=== PATIENT | female | born 1940 | race African-American/Black ===

== ENCOUNTER 2017-11-28 14:18 | Emergency (ER) | payer MEDICARE, BC ==
[2017-11-28 15:04] LABS: ADD MAN DIFF? NO
[2017-11-28 15:06] LABS: BASO % 0 % (0-3); EOS # 0.1 x10^3/uL (0.0-0.7); EOS % 2 % (0-3); HEMATOCRIT 37.7 % (36.0-47.0); HEMOGLOBIN 12.1 g/dL (12.0-15.5); LYMPH # 3.2 x10^3/uL (1.0-4.8); LYMPH % 50 % (24-48); MEAN CORPUSCULAR HEMOGLOBIN 27 pg (25-35); MEAN CORPUSCULAR HGB CONC 32 g/dL (31-37); MEAN CORPUSCULAR VOLUME 85 fL (79-100); MONO # 0.5 x10^3/uL (0.0-1.1); MONO % 8 % (0-9); NEUT # 2.5 x10^3uL (1.8-7.7); NEUT % 40 % (31-73); PLATELET COUNT 242 x10^3/uL (140-400); RED BLOOD COUNT 4.46 x10^6/uL (3.50-5.40); RED CELL DISTRIBUTION WIDTH 15.7 % (11.5-14.5); WHITE BLOOD COUNT 6.4 x10^3/uL (4.0-11.0)
[2017-11-28 15:11] LABS: BILIRUBIN,URINE NEGATIVE (NEG); CLARITY,URINE CLEAR; GLUCOSE,URINE NEGATIVE (NEG); NITRITE,URINE NEGATIVE (NEG); PROTEIN,URINE NEGATIVE (NEG-TRACE); UROBILINOGEN,URINE 0.2 mg/dL (0.2 mg/dL)
[2017-11-28 15:19] LABS: ANION GAP 8 (6-14); BLOOD UREA NITROGEN 11 mg/dL (7-20); CARBON DIOXIDE 29 mmol/L (21-32); CHLORIDE 104 mmol/L (98-107); CREATININE 0.9 mg/dL (0.6-1.0); GFR 73.9; GLUCOSE 97 mg/dL (70-99); POTASSIUM 3.7 mmol/L (3.5-5.1); SODIUM 141 mmol/L (136-145)
[2017-11-28 15:20] LABS: COLOR,URINE STRAW
[2017-11-28 15:22] LABS: BACTERIA,URINE MODERATE /HPF (0-FEW); RBC,URINE 0 /HPF (0-2); SQUAMOUS EPITHELIAL CELL,UR MOD /LPF; WBC,URINE OCC /HPF (0-4)
[2017-11-28 15:25] LABS: ALBUMIN 3.5 g/dL (3.4-5.0); ALK PHOS 122 U/L (46-116); ALT (SGPT) 19 U/L (14-59); AST (SGOT) 15 U/L (15-37); DIRECT BILIRUBIN < 0.1 mg/dL (0.0-0.2); LIPASE 124 U/L (73-393); TOTAL BILIRUBIN 0.3 mg/dL (0.2-1.0); TOTAL PROTEIN 8.2 g/dL (6.4-8.2)
[2017-11-28 15:27] LABS: TROPONINI < 0.017 ng/mL (0.000-0.055)
[2017-11-28] MEDS: MECLIZINE HCL 12.5 MG TABLET. PO (15:30)
[2017-11-28] MEDS: IV NORMAL SALINE 500ML BAG 500 ML IV (15:30)
== END 2017-11-28 18:32 | disposition home or self-care (01) ==
LOC: ER 14:18
DX: R53.1 Weakness (principal); R53.83 Other fatigue; R53.81 Other malaise; R42 Dizziness and giddiness; F41.9 Anxiety disorder, unspecified; M19.90 Unspecified osteoarthritis, unspecified site; M79.7 Fibromyalgia; I10 Essential (primary) hypertension; Z86.73 Personal history of transient ischemic attack (TIA), and cerebral infarction without residual deficits; Z88.0 Allergy status to penicillin; Z90.710 Acquired absence of both cervix and uterus; Z91.041 Radiographic dye allergy status
CPT/HCPCS: 36415; 70450; 71045; 80048; 80076; 81001; 83690; 84484; 85025; 87086; 93005; 96360; 99285-25; J7040; J8597

== ENCOUNTER 2018-01-10 10:05 | Emergency (ER) | payer MEDICARE, BC ==
[2018-01-10 10:31] LABS: ADD MAN DIFF? NO
[2018-01-10] MEDS: IPRATRPIUM/ALBUTEROL 0.5/2.5MG 3 ML NEBU. NEB (10:40)
[2018-01-10 10:42] LABS: ANION GAP 6 (6-14); BASO % 0 % (0-3); BLOOD UREA NITROGEN 12 mg/dL (7-20); BUN/CREATININE RATIO 12 (6-20); CALCIUM 8.7 mg/dL (8.5-10.1); CARBON DIOXIDE 28 mmol/L (21-32); CHLORIDE 102 mmol/L (98-107); EOS # 0.1 x10^3/uL (0.0-0.7); EOS % 3 % (0-3); GFR 65.4; GLUCOSE 98 mg/dL (70-99); HEMATOCRIT 35.8 % (36.0-47.0); LYMPH # 2.7 x10^3/uL (1.0-4.8); LYMPH % 49 % (24-48); MEAN CORPUSCULAR HEMOGLOBIN 28 pg (25-35); MEAN CORPUSCULAR HGB CONC 34 g/dL (31-37); MEAN CORPUSCULAR VOLUME 84 fL (79-100); MONO # 0.4 x10^3/uL (0.0-1.1); MONO % 7 % (0-9); NEUT # 2.2 x10^3uL (1.8-7.7); NEUT % 41 % (31-73); PLATELET COUNT 250 x10^3/uL (140-400); POTASSIUM 3.8 mmol/L (3.5-5.1); RED BLOOD COUNT 4.26 x10^6/uL (3.50-5.40); SODIUM 136 mmol/L (136-145); WHITE BLOOD COUNT 5.4 x10^3/uL (4.0-11.0)
[2018-01-10 10:47] LABS: ALBUMIN 3.3 g/dL (3.4-5.0); ALBUMIN/GLOBULIN RATIO 0.7 (1.0-1.7); ALK PHOS 112 U/L (46-116); ALT (SGPT) 25 U/L (14-59); AST (SGOT) 16 U/L (15-37); TOTAL BILIRUBIN 0.4 mg/dL (0.2-1.0); TOTAL PROTEIN 8.1 g/dL (6.4-8.2)
[2018-01-10] MEDS: predniSONE 10 MG TABLET PO (10:58)
[2018-01-10 12:19] LABS: BILIRUBIN,URINE NEGATIVE (NEG); CLARITY,URINE CLEAR; COLOR,URINE YELLOW; GLUCOSE,URINE NEGATIVE (NEG); NITRITE,URINE NEGATIVE (NEG); PROTEIN,URINE NEGATIVE (NEG-TRACE); UROBILINOGEN,URINE 0.2 mg/dL (0.2 mg/dL)
[2018-01-10 12:31] LABS: BACTERIA,URINE 0 /HPF (0-FEW); RBC,URINE 0 /HPF (0-2); SQUAMOUS EPITHELIAL CELL,UR FEW /LPF; WBC,URINE 0 /HPF (0-4)
== END 2018-01-10 13:11 | disposition home or self-care (01) ==
LOC: ER 10:05
DX: R05 Cough (principal); R06.02 Shortness of breath; R06.2 Wheezing; I10 Essential (primary) hypertension; M79.7 Fibromyalgia; Z86.73 Personal history of transient ischemic attack (TIA), and cerebral infarction without residual deficits; Z88.0 Allergy status to penicillin; Z91.041 Radiographic dye allergy status
CPT/HCPCS: 36415; 71045; 80053; 81001; 85025; 93005; 94640; 99285; J7512; J7620

== ENCOUNTER → 2018-01-26 | Day surgery (SDC) | payer MEDICARE, BC ==
[~2018-01-26] MED LIST: IV RINGERS,LACTATED 1000ML 1,000 ML IV; LIDOCAINE 1% PF 2 ML VIAL. ID; LIDOCAINE 2% PF Vial for OR 5 ML VIAL.; MORPHINE SULFATE 4 MG/ML DISP.SYRIN. IV; ONDANSETRON PF 4 MG/2 ML VIAL. IV; PROCHLORPERAZINE 10 MG/2 ML VIAL. IV; PROPOFOL 40 ML IV; fentaNYL PF VIAL 100 MCG/2 ML VIAL IV
[2018-01-26] MEDS: IV RINGERS,LACTATED 1000ML 1,000 ML IV (08:25)
== END | disposition home or self-care (01) ==
LOC: ENDOS 07:45
DX: Z09 Encounter for follow-up examination after completed treatment for conditions other than malignant neoplasm (principal); Z86.010 Personal history of colon polyps; K57.30 Diverticulosis of large intestine without perforation or abscess without bleeding; F41.9 Anxiety disorder, unspecified; F32.9 Major depressive disorder, single episode, unspecified; K21.9 Gastro-esophageal reflux disease without esophagitis; M17.0 Bilateral primary osteoarthritis of knee; E66.01 Morbid (severe) obesity due to excess calories; G47.33 Obstructive sleep apnea (adult) (pediatric); J45.20 Mild intermittent asthma, uncomplicated; I12.9 Hypertensive chronic kidney disease with stage 1 through stage 4 chronic kidney disease, or unspecified chronic kidney disease; F41.1 Generalized anxiety disorder; N18.2 Chronic kidney disease, stage 2 (mild); Z98.890 Other specified postprocedural states; Z86.73 Personal history of transient ischemic attack (TIA), and cerebral infarction without residual deficits; Z90.710 Acquired absence of both cervix and uterus; Z98.51 Tubal ligation status; Z98.42 Cataract extraction status, left eye; Z98.41 Cataract extraction status, right eye; Z96.1 Presence of intraocular lens; Z88.0 Allergy status to penicillin; Z91.041 Radiographic dye allergy status; Z79.82 Long term (current) use of aspirin; Z79.84 Long term (current) use of oral hypoglycemic drugs; Z79.899 Other long term (current) drug therapy; Z87.440 Personal history of urinary (tract) infections
CPT/HCPCS: 45378; G0105; J2704

== ENCOUNTER 2019-01-05 13:05 | Emergency (ER) | payer MEDICARE, BC ==
[~2019-01-05] VITALS: Ht 162.6 cm; Wt 148.3 kg
[~2019-01-05 13:05] MED LIST changes: +ALBU2.5V8 IH; +ALPR0.5T10 PO; +ASPI325T70 PO; +CETI-17 PO; +CHOL100013 PO; +DICL100G18 TP; +FLEXERIL PO; +FLUT12HF2 IH; +FLUT16SP2 NS; +FURO40TA4 PO; +GABA300C18 PO; +GUAI600T47 PO; +HYDR-2769 PO; -IV RINGERS,LACTATED 1000ML 1,000 ML IV; -LIDOCAINE 1% PF 2 ML VIAL. ID; -LIDOCAINE 2% PF Vial for OR 5 ML VIAL.; +LISI-338 PO; +METF500T16 PO; +METF500T9 PO; +MOME0.5P MC; -MORPHINE SULFATE 4 MG/ML DISP.SYRIN. IV; +OMEG1CAP38 PO; -ONDANSETRON PF 4 MG/2 ML VIAL. IV; +PANT40TA3 PO; +PANT40TA5 PO; +POTA20TA4 PO; +PRED50TA PO; -PROCHLORPERAZINE 10 MG/2 ML VIAL. IV; -PROPOFOL 40 ML IV; +RABE20TA18 PO; +SIMV10TA3 PO; +VENL75CA PO; +XOPENEX CO1.25 MG/0. IH; -fentaNYL PF VIAL 100 MCG/2 ML VIAL IV
[2019-01-05] MEDS ORDERED: MORPHINE IR 15 MG TABLET PO STA (14:30)
--- NOTE | 2019-01-05 15:30 | RAD ---
Right lower extremity venous Doppler dated 01/05/2019. No comparison available. Clinical data indication: Swelling and pain. FINDINGS: Grayscale, color-flow and spectral waveform analysis performed to include the deep venous system of the right lower extremity. There is normal compressibility, phasicity and augmentation of flow throughout. No filling defects are seen. IMPRESSION: No evidence of right lower extremity deep vein thrombosis. Electronically signed by: Taiwo Langley MD (01/05/2019 3:27 PM) [id number]
--- NOTE | 2019-01-05 15:45 | PHYS DOC ---
Past Medical History Past Medical History: Anxiety, Arthritis, CVA, Fibromyalgia, Hypertension, UTI, Other Additional Past Medical Histor: hypokalemia Past Surgical History: Hysterectomy, Other Additional Past Surgical Histo: breast lumpectomy. Alcohol Use: None Drug Use: None Adult General Chief Complaint Chief Complaint: LOWER EXT PAIN HPI HPI Patient is a 78 year old F who presents for R leg swelling and pain x 6 month. She has been having her knee treated for arthritis. She had an injection there 1 month ago which helped. She has been able to walk on it. She did not fall on it. She does say she fell out of bed 1 week ago but she did not hurt her leg at that time. She denies fevers/chills, recent travel, taking hormones/estrogens, cp, sob, vomiting. Review of Systems Review of Systems Constitutional: Denies fever or chills Eyes: Denies change in visual acuity, redness, or eye pain HENT: Denies nasal congestion or sore throat Respiratory: Denies cough or shortness of breath Cardiovascular: Denies CP GI: Denies abdominal pain, nausea, vomiting, bloody stools or diarrhea : Denies dysuria or hematuria Musculoskeletal: Denies back pain or joint pain Integument: Denies rash or skin lesions Neurologic: Denies headache, focal weakness or sensory changes All other systems were reviewed and found to be within normal limits, except as documented in this note. Current Medications Current Medications Current Medications Medications (Trade) Dose Ordered Sig/Marta Start Time Stop Time Status Last Admin Dose Admin Morphine Sulfate (Morphine Ir) 15 mg 1X STAT 01/05/19 14:30 01/05/19 14:33 DC 01/05/19 14:59 15 MG Allergies Allergies Allergies Coded Allergies Type Severity Reaction Last Updated Verified Iodinated Contrast- Oral and IV Dye Allergy Intermediate 10/08/15 Yes Penicillins Allergy Intermediate 10/08/15 Yes Physical Exam Physical Exam Constitutional: Well developed, well nourished, no acute distress, non-toxic appearance. HENT: Normocephalic, atraumatic, bilateral external ears normal, oropharynx moist, no oral exudates, nose normal. Eyes: EOMI, conjunctiva normal, no discharge. Neck: Normal range of motion, no tenderness, supple, no stridor. Cardiovascular: Heart rate regular rhythm, no murmur Lungs & Thorax: Bilateral breath sounds clear to auscultation Abdomen: Bowel sounds normal, soft, no tenderness, no masses, no pulsatile masses. Skin: Warm, dry, no erythema, no rash. Back: No tenderness, no CVA tenderness. Extremities: No tenderness, no cyanosis, no clubbing, ROM intact. Bilat legs with trace edema, 2+ DP pulses bilat. Pt ambulates on the legs without difficulty. No long bone tenderness/deformity or signs of trauma. ROM of feet/ankels/kness intact. Neurologic: Alert and oriented X 3, normal motor function, normal sensory function, no focal deficits noted. Psychologic: Affect normal, judgement normal, mood normal. Current Patient Data Vital Signs Vital Signs Date Time Temp Pulse Resp B/P (MAP) Pulse Ox O2 Delivery O2 Flow Rate FiO2 01/05/19 16:00 70 16 140/77 (98) 100 01/05/19 14:00 97.9 Room Air 97.9 EKG EKG [] Radiology/Procedures Radiology/Procedures [] Course & Med Decision Making Course & Med Decision Making Pertinent Labs and Imaging studies reviewed. (See chart for details) 78 y/o F presents for RLE swelling, both legs swollen for 6 months. On exam she really does not have impressive swelling, maybe trace pitting edema bilat. She does not have any effusion of her knee either to suggest gout or septic arthritis. There is no erythema/induration/bullae to suggest celluitis or necrotizing fasciitis. DVT study neg. She has no respiratory distress, hypoxia, sob, or anything else to suggest heart failure exacerbation. I suspect that this is dependent trace edema and her apin is coming from arthritis in her knee. Pt given one dose of oral pain meds and feels better. She is agreeable with DC home and follow up with PMD. Discussed return precautions. Dragon Disclaimer Dragon Disclaimer This electronic medical record was generated, in whole or in part, using a voice recognition dictation system. Departure Departure Impression: Primary Impression: Leg swelling Disposition: HOME, SELF-CARE Condition: GOOD Referrals: AMADOU TOLLIVER MD (PCP) SEFERINO BERMAN MD January 05, 2019 15:45
[2019-01-05 16:00] VITALS: BP 140/77
== END 2019-01-05 16:22 | disposition home or self-care (01) ==
LOC: ER 13:05
DX: R22.41 Localized swelling, mass and lump, right lower limb (principal); M79.604 Pain in right leg; I10 Essential (primary) hypertension; Z86.73 Personal history of transient ischemic attack (TIA), and cerebral infarction without residual deficits; M17.10 Unilateral primary osteoarthritis, unspecified knee; Z90.710 Acquired absence of both cervix and uterus; Z91.041 Radiographic dye allergy status; Z88.0 Allergy status to penicillin
CPT/HCPCS: 93971; 99284-25

== ENCOUNTER 2020-09-17 05:52 | Inpatient (IN) | payer MEDICARE, BC ==
[~2020-09-17] VITALS: Ht 160 cm; Wt 143.8 kg
[~2020-09-17 05:52] MED LIST changes: -DICL100G18 TP; +DICL100G54 TP; -LISI-338 PO; +LISI-517 PO; +METF-658 PO; -METF500T9 PO; -PANT40TA3 PO; -PANT40TA5 PO; +PANT40TA77 PO; +SIMV10TA15 PO; -SIMV10TA3 PO
--- NOTE | 2020-09-17 06:08 | PHYS DOC ---
Past Medical History Past Medical History: Anxiety, Arthritis, CVA, Fibromyalgia, Hypertension, UTI, Other Additional Past Medical Histor: hypokalemia Past Surgical History: Hysterectomy, Other Additional Past Surgical Histo: breast lumpectomy. Smoking Status: Never Smoker Alcohol Use: None Drug Use: None General Adult EDM: Chief Complaint: SHORTNESS OF BREATH HPI: HPI: Patient is a 80 year old female who presented to ER for evaluation of trouble breathing and left-sided chest pain that woke her up this morning about 3 AM.. Patient denies any fever., Patient denies any cough. Patient has had trouble breathing for the last 4 days but become worse this morning. Patient said her daughter was diagnosed with COVID-19 infection on August 07, she was then tested herself and it came back negative. Review of Systems: Review of Systems: Constitutional: Denies fever or chills. [] Eyes: Denies change in visual acuity. [] HENT: Denies nasal congestion or sore throat. [] Respiratory: Denies cough , POSITIVE FOR shortness of breath. [] Cardiovascular: Positive for chest pain, no edema. [] GI: Denies abdominal pain, nausea, vomiting, bloody stools or diarrhea. [] : Denies dysuria. [] Musculoskeletal: Denies back pain or joint pain. [] Integument: Denies rash. [] Neurologic: Denies headache, focal weakness or sensory changes. [] Endocrine: Denies polyuria or polydipsia. [] Lymphatic: Denies swollen glands. [] Psychiatric: Denies depression or anxiety. [] Heart Score: HEART Score for Chest Pain: HEART Score for Chest Pain Response (Comments) Value History Moderately Suspicious 1 ECG Nonspecific Repolarizatio 1 Age > 65 2 Troponin < Normal Limit 0 Total 4 Risk Factors: Risk Factors: DM, Current or recent (<one month) smoker, HTN, HLP, family history of CAD, obesity. Risk Scores: Score 0 - 3: 2.5% MACE over next 6 weeks - Discharge Home Score 4 - 6: 20.3% MACE over next 6 weeks - Admit for Clinical Observation Score 7 - 10: 72.7% MACE over next 6 weeks - Early Invasive Strategies Allergies: Allergies: Allergies Coded Allergies Type Severity Reaction Last Updated Verified Iodinated Contrast Media Allergy Intermediate 10/08/15 Yes Penicillins Allergy Intermediate 10/08/15 Yes Physical Exam: PE: Constitutional: Well developed, well nourished, no acute distress, non-toxic appearance. [] HENT: Normocephalic, atraumatic, bilateral external ears normal, oropharynx moist, no oral exudates, nose normal. [] Eyes: PERRLA, EOMI, conjunctiva normal, no discharge. [] Neck: Normal range of motion, no tenderness, supple, no stridor. [] Cardiovascular:Heart rate regular rhythm, no murmur [] Lungs & Thorax: Bilateral breath sounds clear to auscultation [] Abdomen: Bowel sounds normal, soft, no tenderness, no masses, no pulsatile masses. [] Skin: Warm, dry, no erythema, no rash. [] Back: No tenderness, no CVA tenderness. [] Extremities: No tenderness, no cyanosis, no clubbing, ROM intact, no edema. [] Neurologic: Alert and oriented X 3, normal motor function, normal sensory function, no focal deficits noted. [] Psychologic: Affect normal, judgement normal, mood normal. [] Current Patient Data: Labs: Laboratory Tests Test 09/17/20 06:00 09/17/20 06:09 White Blood Count 4.4 x10^3/uL Red Blood Count 4.36 x10^6/uL Hemoglobin 12.2 g/dL Hematocrit 37.3 % Mean Corpuscular Volume 86 fL Mean Corpuscular Hemoglobin 28 pg Mean Corpuscular Hemoglobin Concent 33 g/dL Red Cell Distribution Width 14.9 % Platelet Count 224 x10^3/uL Neutrophils (%) (Auto) 38 % Lymphocytes (%) (Auto) 47 % Monocytes (%) (Auto) 10 % Eosinophils (%) (Auto) 4 % Basophils (%) (Auto) 1 % Neutrophils # (Auto) 1.7 x10^3/uL Lymphocytes # (Auto) 2.1 x10^3/uL Monocytes # (Auto) 0.4 x10^3/uL Eosinophils # (Auto) 0.2 x10^3/uL Basophils # (Auto) 0.0 x10^3/uL Sodium Level 142 mmol/L Potassium Level 3.7 mmol/L Chloride Level 106 mmol/L Carbon Dioxide Level 27 mmol/L Anion Gap 9 Blood Urea Nitrogen 9 mg/dL Creatinine 0.9 mg/dL Estimated GFR (Cockcroft-Gault) 73.3 BUN/Creatinine Ratio 10 Glucose Level 109 mg/dL Calcium Level 9.2 mg/dL Magnesium Level 2.1 mg/dL Total Bilirubin 0.5 mg/dL Aspartate Amino Transf (AST/SGOT) 11 U/L Alanine Aminotransferase (ALT/SGPT) 16 U/L Alkaline Phosphatase 111 U/L Troponin I Quantitative < 0.017 ng/mL VI-Bpx-Z-Type Natriuretic Peptide 86 pg/mL Total Protein 7.5 g/dL Albumin 3.5 g/dL Albumin/Globulin Ratio 0.9 Lipase 66 U/L Urine Collection Type Void Urine Color Yellow Urine Clarity Clear Urine pH 6.5 Urine Specific [place] <=1.005 Urine Protein Negative mg/dL Urine Glucose (UA) Negative mg/dL Urine Ketones (Stick) Negative mg/dL Urine Blood Negative Urine Nitrite Negative Urine Bilirubin Negative Urine Urobilinogen Dipstick 0.2 mg/dL Urine Leukocyte Esterase Negative Urine RBC 0 /HPF Urine WBC 0 /HPF Urine Squamous Epithelial Cells Mod /LPF Urine Bacteria Few /HPF Current Medications Medications (Trade) Dose Ordered Sig/Marta Route PRN Reason Start Time Stop Time Status Last Admin Dose Admin Nitroglycerin (Nitro-Bid Oint) 1 inch 1X ONCE TP 09/17/20 06:45 09/17/20 06:46 DC 09/17/20 06:49 Aspirin (Aspirin Chewable) 324 mg 1X ONCE PO 09/17/20 07:30 09/17/20 07:31 DC Morphine Sulfate (Morphine Sulfate) 4 mg 1X ONCE IV 09/17/20 07:45 09/17/20 07:46 DC EKG: EKG: EKG was done at 601, heart rate of 86 bpm, sinus rhythm, no ST segment elevation. Radiology/Procedures: Radiology/Procedures: [][facility] [address] [place] [address] IMAGING REPORT Signed PATIENT: BETO JOSEPH: [id number] : 1940 LOCATION: ER AGE: 80 SEX: F EXAM STATUS: REG ER ORD. PHYSICIAN: VLADISLAV SEBASTIAN DO REASON: chest pain, soa PROCEDURE: PORTABLE CHEST 1V XR CHEST 1V Clinical Indication: Reason: chest pain, soa / Spl. Instructions: / History: Comparison: AP chest, July 06, 2019. Findings: The cardiomediastinal silhouette is normal. Lungs are clear. There is no pneumothorax. No pleural effusion is appreciated. No acute bone abnormality. There is arthropathy of the shoulders. IMPRESSION: No acute cardiopulmonary process. Electronically signed by: Enrique Bey MD (09/17/2020 6:32 AM) [facility] DICTATED and SIGNED BY: ENRIQUE BEY MD DATE: 09/17/20 [id number] 0 Course & Med Decision Making: Course & Med Decision Making Pertinent Labs and Imaging studies reviewed. (See chart for details) Patient is a 80-year-old female who presented to ER for evaluation of chest pain and trouble breathing, her cardiac enzyme and lab work came back normal so far. Her blood pressure elevated, patient be admitted to hospital for further evaluation and treatment. Patient daughter was infected with COVID-19 last month, patient was tested negative then, however with her symptoms we will retested her for Covid infection as well. Dragon Disclaimer: Dragon Disclaimer: This electronic medical record was generated, in whole or in part, using a voice recognition dictation system. Departure Departure Impression: Primary Impression: Chest pain Additional Impressions: Hypertension Person under investigation for COVID-19 Disposition: ADMITTED INPT THIS HOSP Admitting Physician: Thompson Levy Patel, Pratip Condition: IMPROVED Referrals: AMADOU TOLLIVER MD (PCP) VLADISLAV SEBASTIAN DO Sep 17, 2020 06:08
[2020-09-17 06:30] LABS: CALCIUM 9.2 mg/dL (8.5-10.1); CREATININE 0.9 mg/dL (0.6-1.0); GFR 73.3; POTASSIUM 3.7 mmol/L (3.5-5.1)
[2020-09-17 06:32] LABS: BASO % 1 % (0-3); EOS # 0.2 x10^3/uL (0.0-0.7); EOS % 4 % (0-3); HEMATOCRIT 37.3 % (36.0-47.0); HEMOGLOBIN 12.2 g/dL (12.0-15.5); LYMPH # 2.1 x10^3/uL (1.0-4.8); LYMPH % 47 % (24-48); MEAN CORPUSCULAR HEMOGLOBIN 28 pg (25-35); MEAN CORPUSCULAR HGB CONC 33 g/dL (31-37); MEAN CORPUSCULAR VOLUME 86 fL (79-100); MONO # 0.4 x10^3/uL (0.0-1.1); MONO % 10 % (0-9); NEUT # 1.7 x10^3/uL (1.8-7.7); NEUT % 38 % (31-73); PLATELET COUNT 224 x10^3/uL (140-400); RED BLOOD COUNT 4.36 x10^6/uL (3.50-5.40); RED CELL DISTRIBUTION WIDTH 14.9 % (11.5-14.5); WHITE BLOOD COUNT 4.4 x10^3/uL (4.0-11.0)
--- NOTE | 2020-09-17 06:34 | RAD ---
XR CHEST 1V Clinical Indication: Reason: chest pain, soa / Spl. Instructions: / History: Comparison: AP chest, July 06, 2019. Findings: The cardiomediastinal silhouette is normal. Lungs are clear. There is no pneumothorax. No pleural eff usion is appreciated. No acute bone abnormality. There is arthropathy of the shoulders. IMPRESSION: No acute cardiopulmonary process. Electronically signed by: Enrique Bey MD (09/17/2020 6:32 AM) [facility]
[2020-09-17 06:35] LABS: BILIRUBIN,URINE NEGATIVE (NEG); CLARITY,URINE CLEAR; COLOR,URINE YELLOW; NITRITE,URINE NEGATIVE (NEG); PH,URINE 6.5 (<5.0-8.0); PROTEIN,URINE NEGATIVE (NEG-TRACE); UROBILINOGEN,URINE 0.2 mg/dL (0.2 mg/dL)
[2020-09-17 06:36] LABS: ALBUMIN 3.5 g/dL (3.4-5.0); ALBUMIN/GLOBULIN RATIO 0.9 (1.0-1.7); MAGNESIUM 2.1 mg/dL (1.8-2.4); TOTAL BILIRUBIN 0.5 mg/dL (0.2-1.0); TOTAL PROTEIN 7.5 g/dL (6.4-8.2)
[2020-09-17] MEDS ORDERED: NITROGLYCERIN OINT 1 GM PACKET. TP ONE (06:45)
[2020-09-17 06:46] LABS: BACTERIA,URINE FEW /HPF (0-FEW); RBC,URINE 0 /HPF (0-2); WBC,URINE 0 /HPF (0-4)
[2020-09-17] MEDS ORDERED: ASPIRIN CHEWABLE 81 MG TABLET. PO ONE (07:30)
--- NOTE | 2020-09-17 07:38 | EKG ---
[facility] [address] [place] [address] Test Date: 2020-09-17 Test Time: 06:01:22 Pat Name: TUSHAR JOSEPH Department: Room: Gender: F Train Clerk: : 1940 Requested By: VLADISLAV SEBASTIAN Order Number: [id number] Reading MD: Measurements Intervals [place] Rate: 86 P: 102 CT: 192 QRS: -37 QRSD: 112 T: 39 QT: 378 QTc: 455 Interpretive Statements SINUS ARRHYTHMIA ABNORMAL LEFT AXIS DEVIATION LEFT ANTERIOR FASCICULAR BLOCK LEFT VENTRICULAR HYPERTROPHY QRS(T) CONTOUR ABNORMALITY CONSIDER ANTEROSEPTAL MYOCARDIAL DAMAGE ABNORMAL ECG RI6.02 No previous ECG available for comparison
[2020-09-17] MEDS ORDERED: MORPHINE SULFATE 4 MG/ML VIAL. IV ONE (07:45)
[2020-09-17] MEDS ORDERED: MORPHINE SULFATE 4 MG/ML VIAL. IV PRN (08:00)
[2020-09-17] MEDS ORDERED: ONDANSETRON PF 4 MG/2 ML VIAL. IV PRN (08:00)
[2020-09-17] MEDS ORDERED: LISINOPRIL 10 MG TABLET PO ONE (08:00)
[2020-09-17] MEDS ORDERED: ACETAMINOPHEN 325 MG TABLET. PO PRN (10:15)
[2020-09-17] MEDS ORDERED: hydrALAZINE 20 MG/ML VIAL. IVP PRN ×2 (10:30→11:15)
--- NOTE | 2020-09-17 10:30 | PDOC ---
Provider Note Date of Service: DATE: 09/17/20 TIME: 10:29 Provider Note H&P dictated #[id number] Justifications for Admission Other Justification AMADOU TOLLIVER MD Sep 17, 2020 10:30
--- NOTE | 2020-09-17 10:53 | HP ---
ADMIT DATE: 09/17/2020 HISTORY OF PRESENT ILLNESS: This 80-year-old -[place] female who has multiple medical problems including morbid obesity, sleep apnea, hypertension and anxiety and chronic low back pain, started having chest pains 2 days ago. The patient's pain has been continuous at times. She denies any cold, cough, congestion, fever, chills, nausea, vomiting, diarrhea or heartburn. This morning at 3:00 a.m., she woke up with chest pains and because of that, she came to the Emergency Room. Because of the pain, the patient came to the Emergency Room, cardiac enzymes were negative. She was given nitroglycerin and it did give her some relief. The patient has been admitted for further evaluation and management. REVIEW OF SYSTEMS: As noted in the history of present illness. The patient continues to have low back pain that is chronic for her. Other systems reviewed and are negative. PAST MEDICAL HISTORY: The patient was last admitted here in 06/2019. At that time, she has had acute low back pain. She has a history of spinal stenosis and chronic lumbar radiculopathy. She also has had negative cardiac workup including a thallium scan in 2019 as well as echocardiogram showing ejection fraction of 77%. She has a history of hyperlipidemia, hypertension, DVT, palpitations, asthma, bronchitis, sleep apnea, CVA, constipation, diverticulosis, GERD, hemorrhoids, history of colitis, pancreatitis, colonic polyps, anemia, anxiety, depression, low back pain, osteoarthritis, fibromyalgia, diabetes with neuropathy. She has a history of old CVA with right lower extremity weakness. She has a history of fibromyalgia and obstructive sleep apnea. PAST SURGICAL HISTORY: Includes cataract removal, right breast lumpectomy, right knee arthroscopy, right rotator cuff repair. FAMILY HISTORY: Positive for coronary artery disease. SOCIAL HISTORY: No history of smoking, alcoholism or drug abuse. ALLERGIES: THE PATIENT IS ALLERGIC TO IODINATED CONTRAST AND PENICILLIN. MEDICATIONS: Reviewed and reconciled. PHYSICAL EXAMINATION: GENERAL: The patient is an elderly -[place] female who is alert, oriented x 3, morbidly obese, and not in any acute distress. She is somewhat anxious. VITAL SIGNS: Temperature 98.5, pulse 85 per minute, respirations 15 per minute, blood pressure was 181/126, went up to 207/100 mmHg. She does admit to some pain. EYES: Pupils reacting to light. Conjunctivae pale. Sclerae muddy. HEENT: Partial exam unremarkable. NECK: Supple. JVP normal. No thyromegaly. Trachea midline. LUNGS: Clear. CARDIOVASCULAR: S1, S2 regular. ABDOMEN: Soft, nontender, no guarding, no rigidity. Bowel sounds present. Abdomen is obese. EXTREMITIES: No edema. CENTRAL NERVOUS SYSTEM: Alert and oriented, anxious. Lumbosacral spine, mild pain with range of motion. LABORATORY FINDINGS: WBC count 4.4, hemoglobin 12.2, platelet count 224,000. Sodium 142, potassium 3.7. Troponin less than 0.017, BUN 9, creatinine 0.9, glucose 109, calcium 9.2, magnesium 2.1, AST 11, ALT 16, albumin 3.5, lipase 66. Urinalysis negative. Chest x-ray, no acute cardiopulmonary process. IMPRESSION: 1. Chest pain, etiology not clear. 2. Malignant hypertension. 3. Old cerebrovascular accident with left-sided weakness. 4. Fibromyalgia. 5. Osteoarthritis with chronic lumbar radiculopathy and low back pain on hydrocodone. 6. Gastroesophageal reflux disease without esophagitis. 7. Chronic pain. 8. Morbid obesity. 9. Depression. 10. Anxiety. 11. Asthma. 12. Obstructive sleep apnea. PLAN: Restart her home medications. Give IV hydralazine 10 mg q.4 hours p.r.n. for systolic blood pressure more than 160. Consult Dr. Mullins for cardiology evaluation and management. Monitor cardiac enzymes and EKG. Start Protonix and Lovenox for DVT prophylaxis. For details, please refer to the orders. AMADOU TOLLIVER MD DR: KAYLEE/lia JOB#: [id number] / [id number]
[2020-09-17 11:00] VITALS: BP 175/109
[2020-09-17] MEDS: FUROSEMIDE 40 MG TABLET. PO SCH (11:23)
[2020-09-17] MEDS: POTASSIUM CHLORIDE 20 MEQ TABLET.ER. PO SCH (11:23)
[2020-09-17] MEDS: PANTOPRAZOLE 40 MG TABLET.DR. PO SCH (11:24)
[2020-09-17] MEDS: LISINOPRIL 10 MG TABLET PO SCH (11:24)
[2020-09-17] MEDS: HYDROcodone/APAP 10/325 1 TAB TABLET PO PRN ×2 (11:35→20:42)
[2020-09-17] MEDS: ALBUTEROL SULFATE 2.5 MG/3 ML NEBU. NEB SCH ×3 (11:56→21:00)
[2020-09-17 12:33] LABS: CHOLESTEROL/HDL RATIO 3.1
--- NOTE | 2020-09-17 13:15 | PDOC2 ---
GAIL HAMMOND SMALL ENGINE TRAINER 09/17/20 1315: CARDIAC CONSULT DATE OF CONSULT Date of Consult DATE: 09/17/20 TIME: 13:09 REASON FOR CONSULT Reason for Consult: Chest pain REFERRING PHYSICIAN Referring Physician: Dr. Sweeney SOURCE Source: Chart review, Patient HISTORY OF PRESENT ILLNESS HISTORY OF PRESENT ILLNESS This is a 80 yo female who presented secondary to chest pain and shortness of breath. Patient reports having some mild shortness of breath for the last 4 days. Overnight, patient woke up from sleep with shortness of breath and tightness in her central chest. Denies any associated dizziness, diaphoresis, palpitations, or nausea/vomiting. PAST MEDICAL HISTORY Past Medical History Cardiovascular: HTN, Hyperlipidemia Pulmonary: No pertinent hx CENTRAL NERVOUS SYSTEM: CVA GI: GERD, Irritable bowel disease Heme/Onc: Anemia NOS Hepatobiliary: No pertinent hx Psych: Anxiety, Depression Musculoskeletal: Osteoarthritis Rheumatologic: Fibromyalgia Renal/: Chronic renal insuff (3) Endocrine: Diabetes (2) Dermatology: No pertinent hx PAST SURGICAL HISTORY Past Surgical History Breast Biopsy (x2 benign), Hysterectomy, Other (hemorrhoidectomy, nodule vocal cord removed: benign) FAMILY HISTORY Family History: Coronary Artery Disease, Heart Disease SOCIAL HISTORY Social History Smoke: No ALCOHOL: none Drugs: None Lives: with Family CURRENT MEDICATIONS CURRENT MEDICATIONS Current Medications Medications (Trade) Dose Ordered Sig/Marta Route PRN Reason Start Time Stop Time Status Last Admin Dose Admin Nitroglycerin (Nitro-Bid Oint) 1 inch 1X ONCE TP 09/17/20 06:45 09/17/20 06:46 DC 09/17/20 06:49 Aspirin (Aspirin Chewable) 324 mg 1X ONCE PO 09/17/20 07:30 09/17/20 07:31 DC 09/17/20 08:07 Morphine Sulfate (Morphine Sulfate) 4 mg 1X ONCE IV 09/17/20 07:45 09/17/20 07:46 DC 09/17/20 08:09 Lisinopril (Prinivil) 10 mg 1X ONCE PO 09/17/20 08:00 09/17/20 08:01 DC 09/17/20 08:08 Furosemide (Lasix) 40 mg DAILY PO 09/17/20 11:00 09/17/20 11:23 Acetaminophen/ Hydrocodone Bitart (Lortab 10/325) 1 tab PRN TID PRN PO MODERATE PAIN, SEVERE PAIN 09/17/20 10:15 09/17/20 11:35 Lisinopril (Prinivil) 10 mg DAILY PO 09/17/20 11:00 09/17/20 11:24 Potassium Chloride (Klor-Con) 20 meq DAILY PO 09/17/20 11:00 09/17/20 11:23 Enoxaparin Sodium (Lovenox 60mg Syringe) 60 mg Q12HR SQ 09/17/20 11:00 09/17/20 11:24 Pantoprazole Sodium (Protonix) 40 mg DAILYAC PO 09/17/20 11:30 09/17/20 11:24 ALLERGIES ALLERGIES: Coded Allergies: Iodinated Contrast Media (Verified Allergy, Intermediate, 10/08/15) Penicillins (Verified Allergy, Intermediate, 10/08/15) ROS Review of System 14 point ROS conducted with pertinent positives noted above in HPI PHYSICAL EXAM PHYSICAL EXAM General: Alert, Oriented X3, Cooperative, No acute distress HEENT: Atraumatic, Mucous membr. moist/pink Lungs: diminished bases Heart: Regular rate (SR no significant ectopies), Normal S1, Normal S2, No murmurs Abdomen: Soft, No tenderness Extremities: No cyanosis Skin: No breakdown, No significant lesion Neuro: Normal speech, Sensation intact Psych/Mental Status: Mental status NL, Mood NL MUSCULOSKELETAL: Osteoarthritic changes both hands VITALS/I&O VITALS/I&O: Vital Signs Date Time Temp Pulse Resp B/P (MAP) Pulse Ox O2 Delivery O2 Flow Rate FiO2 09/17/20 11:35 18 100 Room Air 09/17/20 11:24 89 175/109 09/17/20 11:00 97.5 97.5 LABS Lab: Laboratory Tests Test 09/17/20 06:00 09/17/20 06:09 09/17/20 09:54 09/17/20 11:54 White Blood Count 4.4 x10^3/uL (4.0-11.0) Red Blood Count 4.36 x10^6/uL (3.50-5.40) Hemoglobin 12.2 g/dL (12.0-15.5) Hematocrit 37.3 % (36.0-47.0) Mean Corpuscular Volume 86 fL (79-100) Mean Corpuscular Hemoglobin 28 pg (25-35) Mean Corpuscular Hemoglobin Concent 33 g/dL (31-37) Red Cell Distribution Width 14.9 % (11.5-14.5) H Platelet Count 224 x10^3/uL (140-400) Neutrophils (%) (Auto) 38 % (31-73) Lymphocytes (%) (Auto) 47 % (24-48) Monocytes (%) (Auto) 10 % (0-9) H Eosinophils (%) (Auto) 4 % (0-3) H Basophils (%) (Auto) 1 % (0-3) Neutrophils # (Auto) 1.7 x10^3/uL (1.8-7.7) L Lymphocytes # (Auto) 2.1 x10^3/uL (1.0-4.8) Monocytes # (Auto) 0.4 x10^3/uL (0.0-1.1) Eosinophils # (Auto) 0.2 x10^3/uL (0.0-0.7) Basophils # (Auto) 0.0 x10^3/uL (0.0-0.2) Sodium Level 142 mmol/L (136-145) Potassium Level 3.7 mmol/L (3.5-5.1) Chloride Level 106 mmol/L (98-107) Carbon Dioxide Level 27 mmol/L (21-32) Anion Gap 9 (6-14) Blood Urea Nitrogen 9 mg/dL (7-20) Creatinine 0.9 mg/dL (0.6-1.0) Estimated GFR (Cockcroft-Gault) 73.3 BUN/Creatinine Ratio 10 (6-20) Glucose Level 109 mg/dL (70-99) H Calcium Level 9.2 mg/dL (8.5-10.1) Magnesium Level 2.1 mg/dL (1.8-2.4) Total Bilirubin 0.5 mg/dL (0.2-1.0) Aspartate Amino Transferase (AST) 11 U/L (15-37) L Alanine Aminotransferase (ALT) 16 U/L (14-59) Alkaline Phosphatase 111 U/L (46-116) Troponin I Quantitative < 0.017 ng/mL (0.000-0.055) < 0.017 ng/mL (0.000-0.055) JL-Dgh-K-Type Natriuretic Peptide 86 pg/mL (0-449) Total Protein 7.5 g/dL (6.4-8.2) Albumin 3.5 g/dL (3.4-5.0) Albumin/Globulin Ratio 0.9 (1.0-1.7) L Triglycerides Level 120 mg/dL (0-150) Cholesterol Level 214 mg/dL (0-200) H LDL Cholesterol, Calculated 120 mg/dL (0-100) H VLDL Cholesterol, Calculated 24 mg/dL (0-40) Non-HDL Cholesterol Calculated 144 mg/dL (0-129) H HDL Cholesterol 70 mg/dL (40-60) H Cholesterol/HDL Ratio 3.1 Lipase 66 U/L (73-393) L Urine Collection Type Void Urine Color Yellow Urine Clarity Clear Urine pH 6.5 (<5.0-8.0) Urine Specific [place] <=1.005 (1.000-1.030) Urine Protein Negative mg/dL (NEG-TRACE) Urine Glucose (UA) Negative mg/dL (NEG) Urine Ketones (Stick) Negative mg/dL (NEG) Urine Blood Negative (NEG) Urine Nitrite Negative (NEG) Urine Bilirubin Negative (NEG) Urine Urobilinogen Dipstick 0.2 mg/dL (0.2 mg/dL) Urine Leukocyte Esterase Negative (NEG) Urine RBC 0 /HPF (0-2) Urine WBC 0 /HPF (0-4) Urine Squamous Epithelial Cells Mod /LPF Urine Bacteria Few /HPF (0-FEW) Glucose (Fingerstick) 96 mg/dL (70-99) Laboratory Tests 09/17/20 06:00 Laboratory Tests 09/17/20 06:00 ECHOCARDIOGRAM ECHOCARDIOGRAM <Conclusion> The left ventricular systolic function is normal. The Ejection Fraction is 55-60%. There is normal LV segmental wall motion. Trace to mild mitral regurgitation. Trace tricuspid regurgitation. The PA pressure was estimated at 32 mmHg. There is no evidence of significant pericardial effusion. DATE: 09/06/18 1216 STRESS TEST STRESS TEST Conclusion 1. Regadenoson cardioisotope stress test did not show any evidence of ischemia or infarct. 2. Normal left ventricular systolic function with ejection fraction calculated a t 77%. 3. Low risk for cardiac events. DATE: 05/01/17 1204 ASSESSMENT/PLAN ASSESSMENT/PLAN 1. Chest pain, mixed features; AMI ruled out. 2. Dyspnea; CXR clear. Nt Pro BNP 86. No evidence of overt HF. ? obstructive vs uncontrolled HTN component 2. Hypertensive urgency. remains labile 3. Hyperlipidemia: statin. [id number] 4. CKD 5. Hx of CVA 6. Morbid obesity: BMI 53.9 7. Diabetes, II 8. Anxiety/fibromyalgia 9. PUI; COVID pending Recommendations ASA Add statin, BB Home therapy resume. Monitor BP trends and titrate therapy as warranted Oral Lasix therapy. Echo to assess LV systolic function Will arranged outpatient ischemic evaluation and followup. CLINTON SANTIAGO MD 09/18/20 0844: CARDIAC CONSULT ASSESSMENT/PLAN ASSESSMENT/PLAN Patient seen and examined 09/17/20. Agree with BUSINESS SERVICES VICE PRESIDENT's assessment and plan. Chest pain with atypical features. Myocardial infarction has been ruled out. Resume home antihypertensives and titrate for better control. Check 2D echo to assess LV function and rule out wall motion abnormalities. Plan ischemic evaluation outpatient. Thank you for your consultation GAIL HAMMOND APRN Sep 17, 2020 13:15 CLINTON SANTIAGO MD Sep 18, 2020 08:44
[2020-09-17] MEDS: GABAPENTIN 300 MG CAPSULE. PO SCH ×2 (13:50→20:42)
[2020-09-17] MEDS: DICLOFENAC SODIUM 1% TOPICAL GEL 100GM TUBE. TP SCH ×2 (13:51→20:42)
[2020-09-17 15:00] VITALS: BP 129/73
[2020-09-17 19:29] VITALS: BP 121/51
[2020-09-17] MEDS: CETIRIZINE HCL 10 MG TABLET. PO SCH (20:42)
[2020-09-17] MEDS: BUDESONIDE 0.5 MG/2 ML NEBU. NEB SCH (21:00)
[2020-09-17] MEDS ORDERED: SALMETEROL IH SCH (21:00)
[2020-09-17] MEDS ORDERED: FLUTICASONE IH SCH (21:00)
[2020-09-17] MEDS: METOPROLOL TART IMMED RELEASE 25 MG TABLET. PO SCH (21:59)
[2020-09-17] MEDS: ATORVASTATIN CALCIUM 40 MG TABLET. PO SCH (21:59)
[2020-09-17 22:25] VITALS: BP 123/61
[2020-09-18 02:37] VITALS: BP 109/60
[2020-09-18 07:00] VITALS: BP 136/79
[2020-09-18] MEDS: GABAPENTIN 300 MG CAPSULE. PO SCH ×3 (07:55→20:23)
[2020-09-18] MEDS: OMEGA-3 FATTY ACIDS/FISH OIL 1,000 MG CAPSULE. PO SCH (07:55)
[2020-09-18] MEDS: LISINOPRIL 10 MG TABLET PO SCH (07:55)
[2020-09-18] MEDS: ASPIRIN 325 MG TABLET PO SCH (07:55)
[2020-09-18] MEDS: FUROSEMIDE 40 MG TABLET. PO SCH (07:55)
[2020-09-18] MEDS: POTASSIUM CHLORIDE 20 MEQ TABLET.ER. PO SCH (07:55)
[2020-09-18] MEDS: PANTOPRAZOLE 40 MG TABLET.DR. PO SCH (07:56)
[2020-09-18] MEDS: METOPROLOL TART IMMED RELEASE 25 MG TABLET. PO SCH ×2 (07:56→20:24)
[2020-09-18] MEDS: HYDROcodone/APAP 10/325 1 TAB TABLET PO PRN ×3 (07:57→20:24)
[2020-09-18] MEDS: ALBUTEROL SULFATE 2.5 MG/3 ML NEBU. NEB SCH ×4 (08:00→20:00)
[2020-09-18] MEDS: DICLOFENAC SODIUM 1% TOPICAL GEL 100GM TUBE. TP SCH ×3 (09:00→18:01)
[2020-09-18 09:15] LABS: CALCIUM 8.8 mg/dL (8.5-10.1); CREATININE 0.9 mg/dL (0.6-1.0); GFR 73.3; POTASSIUM 3.8 mmol/L (3.5-5.1)
--- NOTE | 2020-09-18 10:36 | PDOC3 ---
IM DISCHARGE SUMMARY Date of Admission Date of Admission Date of Admission: Sep 17, 2020 at 07:54 Date of Discharge Date of Discharge September 18, 2020 Primary Diagnosis Primary Diagnosis 1. Chest pain, etiology not clear. 2. Malignant hypertension. 3. Old cerebrovascular accident with left-sided weakness. 4. Fibromyalgia. 5. Osteoarthritis with chronic lumbar radiculopathy and low back pain on hydrocodone. 6. Gastroesophageal reflux disease without esophagitis. 7. Chronic pain. 8. Morbid obesity. 9. Depression. 10. Anxiety. 11. Asthma. 12. Obstructive sleep apnea. Consults Consults Wes Mullins MD Labs Labs Laboratory Tests Test 09/17/20 11:54 09/17/20 12:10 09/17/20 17:10 09/17/20 20:35 Glucose (Fingerstick) 96 mg/dL (70-99) 116 mg/dL (70-99) H 118 mg/dL (70-99) H Troponin I Quantitative < 0.017 ng/mL (0.000-0.055) Test 09/18/20 08:08 09/18/20 08:10 Glucose (Fingerstick) 96 mg/dL (70-99) Sodium Level 141 mmol/L (136-145) Potassium Level 3.8 mmol/L (3.5-5.1) Chloride Level 105 mmol/L (98-107) Carbon Dioxide Level 27 mmol/L (21-32) Anion Gap 9 (6-14) Blood Urea Nitrogen 11 mg/dL (7-20) Creatinine 0.9 mg/dL (0.6-1.0) Estimated GFR (Cockcroft-Gault) 73.3 Glucose Level 91 mg/dL (70-99) Calcium Level 8.8 mg/dL (8.5-10.1) Laboratory Tests 09/18/20 08:10 Brief hospital course Brief hospital course This 80-year-old -[place] female who has multiple medical problems including morbid obesity, sleep apnea, hypertension and anxiety and chronic low back pain, started having chest pains 2 days ago. The patient's pain has been continuous at times. She denies any cold, cough, congestion, fever, chills, nausea, vomiting, diarrhea or heartburn. This morning at 3:00 a.m., she woke up with chest pains and because of that, she came to the Emergency Room. Because of the pain, the patient came to the Emergency Room, cardiac enzymes were negative. She was given nitroglycerin and it did give her some relief. The patient has been admitted for further evaluation and management. For more details regarding the past history, family history, social history, surgical history and other details, please refer to History and Physical. Acute myocardial infarction was ruled out. Cardiac enzymes were normal. Echocardiogram report is pending. Will discharge patient home when okay with the cfa. Started on pantoprazole. Medications Current Medications Medications (Trade) Dose Ordered Sig/Marta Route PRN Reason Start Time Stop Time Status Last Admin Dose Admin Diclofenac Sodium (Voltaren) 1 diana TID TP 09/17/20 14:00 09/17/20 20:42 Furosemide (Lasix) 40 mg DAILY PO 09/17/20 11:00 09/18/20 07:55 Gabapentin (Neurontin) 300 mg TID PO 09/17/20 14:00 09/18/20 07:55 Lisinopril (Prinivil) 10 mg DAILY PO 09/17/20 11:00 09/18/20 07:55 Potassium Chloride (Klor-Con) 20 meq DAILY PO 09/17/20 11:00 09/18/20 07:55 Aspirin (Jose Aspirin) 162.5 mg DAILYWBKFT PO 09/18/20 08:00 09/18/20 07:55 Cetirizine HCl (ZyrTEC) 10 mg HS PO 09/17/20 21:00 09/17/20 20:42 Fish Oil (Fish Oil) 1,000 mg DAILY PO 09/18/20 09:00 09/18/20 07:55 Albuterol Sulfate (Ventolin Neb Soln) 2.5 mg RTQID NEB 09/17/20 12:00 09/24/20 11:59 09/17/20 21:00 Budesonide (Pulmicort) 0.5 mg RTBID NEB 09/17/20 20:00 09/17/20 21:00 Enoxaparin Sodium (Lovenox 60mg Syringe) 60 mg Q12HR SQ 09/17/20 11:00 09/18/20 07:56 Pantoprazole Sodium (Protonix) 40 mg DAILYAC PO 09/17/20 11:30 09/18/20 07:56 Metoprolol Tartrate (Lopressor) 25 mg BID PO 09/17/20 21:00 09/18/20 07:56 Atorvastatin Calcium (Lipitor) 40 mg QHS PO 09/17/20 21:00 09/17/20 21:59 Medications reviewed and reconciled for discharge. Allergy Allergies Coded Allergies Type Severity Reaction Last Updated Verified Iodinated Contrast Media Allergy Intermediate 10/08/15 Yes Penicillins Allergy Intermediate 10/08/15 Yes Follow up in 5 days. DISPOSITION: Home Comments Discharge Management - 35 minutes. For other details please refer to discharge instructions Justicifation of Admission Dx: Justifications for Admission: Justification of Admission Dx: Yes Comments: Chest pain AMADOU TOLLIVER MD Sep 18, 2020 10:36
[2020-09-18] MEDS ORDERED: ATOR40TA59 PO (10:42)
[2020-09-18] MEDS ORDERED: PANT40TA77 PO (10:42)
[2020-09-18] MEDS ORDERED: METO25TA4 PO (10:42)
--- NOTE | 2020-09-18 10:44 | DISCH ---
DISCHARGE INSTRUCTIONS Condition on Discharge Condition on Discharge: Stable Activity After Discharge Activity Instructions for Disc: Activity as tolerated Lifting Instructions after Dis: No heavy lifting Weight Bearing Status after Di: As tolerated Diet after Discharge Diet after Discharge: Cardiac (ADA) Diet Texture: Regular Liquid Texture: Thin Liquid Checks after Discharge Checks after discharge: Check blood press - daily Contacting the DRAmmon after DC Call your doctor for: Concerns you may have Follow-Up Follow up with: DR.Pratip Tolliver in 5 days AMADOU TOLLIVER MD Sep 18, 2020 10:44
[2020-09-18 11:00] VITALS: BP 106/58
--- NOTE | 2020-09-18 12:50 | CARD ---
MR#: [id number] Date of Study: 09/18/2020 Ordering Physician: GAIL HAMMOND, Referring Physician: GAIL HAMMOND, Tech: Julieta Andrade APPROVED REPORT EXAM: Two-dimensional and M-mode echocardiogram with Doppler and color Doppler. INDICATION Chest Pain Congestive Heart Failure RISK FACTORS Hypertension 2D DIMENSIONS RVDd3.7 (2.9-3.5cm)Left Atrium(2D)3.9 (1.6-4.0cm) IVSd1.0 (0.7-1.1cm)Aortic Root(2D)3.0 (2.0-3.7cm) LVDd5.3 (3.9-5.9cm)LVOT Diameter2.1 (1.8-2.4cm) PWd0.9 (0.7-1.1cm)LVDs3.6 (2.5-4.0cm) FS (%) 31.2 %SV78.4 ml Aortic Valve AoV Peak Zheng.142.8cm/sAoV VTI28.5cm AO Peak GR.8.2mmHgLVOT Peak Zheng.131.3cm/s LVOT VTI 30.21cmAO Mean GR.4mmHg PRUDENCIO (VMAX)2.44vv8GEU (VTI)3.54cm2 Mitral Valve MV E Vfmcfbgt01.2cm/sMV DECEL [id number] MV A Axzfahts14.3cm/sMV E Mean Gr.3mmHg MV [id number]/A Ratio0.8 MVA (PHT)3.96cm2 TDI E/Lateral E'6.4E/Medial E'11.7 Pulmonary Valve PV Peak Aevhvltx881.2cm/sPV Peak Grad.4mmHg Tricuspid Valve TR P. Kctknwwx066lu/sRAP LPJGVGXK5cyLe TR Peak Gr.30hzStISAC74mpKz Pulmonary Vein S1 Mcatbxrb12.3cm/sD2 Txsrfsge82.2cm/s PVa [id number] LEFT VENTRICLE The left ventricle is normal size. There is normal left ventricular wall thickness. The left ventricu lar systolic function is low normal. The Ejection Fraction is estimated at 50%. Wall motion consisten t with conduction abnormality. Transmitral Doppler flow pattern is Grade I-abnormal relaxation patter n. RIGHT VENTRICLE The right ventricle is borderline dilated. There is normal right ventricular wall thickness. The righ t ventricular systolic function is normal. ATRIA The left atrium size is normal. The right atrium size is normal. The interatrial septum is intact wit h no evidence for an atrial septal defect or patent foramen ovale as noted on 2-D or Doppler imaging. AORTIC VALVE The aortic valve is normal in structure and function. Doppler and Color Flow revealed trace aortic re gurgitation. There is no significant aortic valvular stenosis. Calculated aortic valve area is 3.21 c m2 with maximum pressure gradient of 9 mmHg and mean pressure gradient of 5 mmHg. MITRAL VALVE The mitral valve is normal in structure and function. There is no evidence of mitral valve prolapse. There is no mitral valve stenosis. Doppler and Color-flow revealed trace to mild mitral regurgitation . TRICUSPID VALVE The tricuspid valve is normal in structure and function. Doppler and Color Flow revealed trace tricus pid regurgitation with an estimated PAP of 31 mmHg. There is no tricuspid valve stenosis. PULMONIC VALVE The pulmonic valve is not well visualized. Doppler and Color Flow revealed trace pulmonic valvular re gurgitation. GREAT VESSELS The aortic root is normal in size. The IVC is normal in size and collapses >50% with inspiration. PERICARDIAL EFFUSION There is no evidence of significant pericardial effusion. Critical Notification Critical Value: No <Conclusion> The left ventricle is normal size. The left ventricular systolic function is low normal. The Ejection Fraction is estimated at 50%. Wall motion consistent with conduction abnormality. Doppler and Color Flow revealed trace aortic regurgitation. There is no significant aortic valvular stenosis. Calculated aortic valve area is 3.21 cm2 with maximum pressure gradient of 9 mmHg and mean pressure g radient of 5 mmHg. Doppler and Color-flow revealed trace to mild mitral regurgitation. Doppler and Color Flow revealed trace tricuspid regurgitation with an estimated PAP of 31 mmHg. Signed by : Lam Robbins MD Electronically Approved : 09/18/2020 12:49:59
[2020-09-18] MEDS: BUDESONIDE 0.5 MG/2 ML NEBU. NEB SCH ×2 (12:55→20:00)
--- NOTE | 2020-09-18 13:13 | NUR ---
SS following for discharge planning. SS reviewed pt chart and discussed with pt RN. Pt is from home and is currently on room air. COVID19 negative. Discharge order on the chart for home with self care.
--- NOTE | 2020-09-18 13:19 | PDOC ---
GAIL HAMMOND LOCOMOTIVE CRANE OPERATOR HELPER 09/18/20 1319: CARDIO Progress Notes Date and Time Date of Service 09/18/20 Time of Evaluation 1310 Subjective Subjective: No Chest Pain, No shortness of breath, No Palpitations Vitals Vitals Vital Signs Date Time Temp Pulse Resp B/P (MAP) Pulse Ox O2 Delivery O2 Flow Rate FiO2 09/18/20 13:01 98 Room Air 09/18/20 11:00 97.9 81 20 106/58 (74) 97.9 Weight Weight [ ] Input and Output Intake and Output Intake and Output 09/18/20 06:59 Intake Total 900 ml Output Total 200 ml Balance 700 ml Intake Oral 900 ml Output Urine Total 200 ml # Voids 1 Laboratory Labs Laboratory Tests Test 09/17/20 17:10 09/17/20 20:35 09/18/20 08:08 09/18/20 08:10 Glucose (Fingerstick) 116 mg/dL (70-99) 118 mg/dL (70-99) 96 mg/dL (70-99) Sodium Level 141 mmol/L (136-145) Potassium Level 3.8 mmol/L (3.5-5.1) Chloride Level 105 mmol/L (98-107) Carbon Dioxide Level 27 mmol/L (21-32) Anion Gap 9 (6-14) Blood Urea Nitrogen 11 mg/dL (7-20) Creatinine 0.9 mg/dL (0.6-1.0) Estimated GFR (Cockcroft-Gault) 73.3 Glucose Level 91 mg/dL (70-99) Calcium Level 8.8 mg/dL (8.5-10.1) Test 09/18/20 11:37 Glucose (Fingerstick) 122 mg/dL (70-99) Physical Exam HEENT: Neck Supple W Full Motion Chest: Symmetric LUNGS: Other (diminished bases) Heart: RRR Abdomen: Soft N/T, Other (obese) Extremities: Other (trace bilateral LE edema ) Neurology: alert, oriented, follow commands Assessment Assessment 1. Chest pain, mixed features; AMI ruled out. 2. Dyspnea; CXR clear. Nt Pro BNP 86. No evidence of overt HF. Echo with LVEF 50% 2. Hypertensive urgency; now controlled 3. Hyperlipidemia: statin. [id number] 4. CKD 5. Hx of CVA 6. Morbid obesity: BMI 53.9 7. Diabetes, II 8. Anxiety/fibromyalgia 9. PUI; COVID negative Recommendations ASA, statin, BB therapy. Continue current antiHTN therapy Oral Lasix therapy. Discussed outpatient ischemic evaluation and followup; will be 2-day MPI. Patient requesting to have MPI conducted now as she does not have transportation and is also apprehensive going home without having ischemic evaluation given her presenting symptoms. Will proceed with stress test as an inpatient. Resting images today NPO p MN with stress images in the am Supportive care Justicifation of Admission Dx: Justifications for Admission: Justification of Admission Dx: Yes CLINTON SANTIAGO MD 09/18/202119: CARDIO Progress Notes Assessment Assessment Patient seen and examined. Agree with DITCH INSPECTOR's assessment and plan. Chest pain with atypical features. Myocardial infarction has been ruled out. BP better controlled 2D echo showed LVEF 50% Agree with MPI to rule out ischemia GAIL HAMMOND APRN Sep 18, 2020 13:19 CLINTON SANTIAGO MD Sep 18, 2020 21:20
--- NOTE | 2020-09-18 13:33 | NUR ---
SS following up with discharge planning. Cardiology saw and pt being scheduled for inpatient stress test. Discharge on hold at this time.
[2020-09-18 15:00] VITALS: BP 121/64
[2020-09-18 19:00] VITALS: BP 104/55
[2020-09-18] MEDS: ATORVASTATIN CALCIUM 40 MG TABLET. PO SCH (20:23)
[2020-09-18] MEDS: CETIRIZINE HCL 10 MG TABLET. PO SCH (20:23)
[2020-09-18 23:20] VITALS: BP 107/59
[2020-09-19 02:47] VITALS: BP 112/69
[2020-09-19 07:00] VITALS: BP 133/79
[2020-09-19] MEDS: PANTOPRAZOLE 40 MG TABLET.DR. PO SCH (07:30)
[2020-09-19] MEDS ORDERED: REGADENOSON 0.4 MG/5 ML DISP.SYRIN. IV ONE (08:00)
[2020-09-19] MEDS: BUDESONIDE 0.5 MG/2 ML NEBU. NEB SCH (08:04)
[2020-09-19] MEDS: ALBUTEROL SULFATE 2.5 MG/3 ML NEBU. NEB SCH ×2 (08:04→11:54)
[2020-09-19] MEDS: OMEGA-3 FATTY ACIDS/FISH OIL 1,000 MG CAPSULE. PO SCH (09:49)
[2020-09-19] MEDS: GABAPENTIN 300 MG CAPSULE. PO SCH ×2 (09:49→14:08)
[2020-09-19] MEDS: POTASSIUM CHLORIDE 20 MEQ TABLET.ER. PO SCH (09:50)
[2020-09-19] MEDS: ASPIRIN 325 MG TABLET PO SCH (09:50)
[2020-09-19] MEDS: FUROSEMIDE 40 MG TABLET. PO SCH (09:50)
[2020-09-19] MEDS: LISINOPRIL 10 MG TABLET PO SCH (09:50)
[2020-09-19] MEDS: METOPROLOL TART IMMED RELEASE 25 MG TABLET. PO SCH (09:51)
[2020-09-19] MEDS: DICLOFENAC SODIUM 1% TOPICAL GEL 100GM TUBE. TP SCH (09:54)
[2020-09-19] MEDS: HYDROcodone/APAP 10/325 1 TAB TABLET PO PRN ×2 (09:58→14:08)
--- NOTE | 2020-09-19 10:16 | PDOC ---
GAIL HAMMOND APRN 09/19/20 1016: CARDIO Progress Notes Date and Time Date of Service 09/19/20 Time of Evaluation 1015 Subjective Subjective: No Chest Pain, No shortness of breath, No Palpitations Vitals Vitals Vital Signs Date Time Temp Pulse Resp B/P (MAP) Pulse Ox O2 Delivery O2 Flow Rate FiO2 09/19/20 09:58 20 98 Room Air 09/19/20 09:51 73 133/79 09/19/20 07:00 97.8 97.8 Weight Weight [ ] Input and Output Intake and Output Intake and Output 09/19/20 07:00 Intake Total 620 ml Output Total 1400 ml Balance -780 ml Intake Oral 620 ml Output Urine Total 1400 ml Laboratory Labs Laboratory Tests Test 09/18/20 11:37 09/18/20 16:50 09/18/20 20:32 Glucose (Fingerstick) 122 mg/dL (70-99) 111 mg/dL (70-99) 136 mg/dL (70-99) Physical Exam HEENT: Neck Supple W Full Motion Chest: Symmetric LUNGS: Other (diminished bases) Heart: RRR Abdomen: Soft N/T, Other (obese) Extremities: Other (trace bilateral LE edema ) Neurology: alert, oriented, follow commands Assessment Assessment 1. Chest pain, atypical features; AMI ruled out. 2. Dyspnea; CXR clear. Nt Pro BNP 86. No evidence of overt HF. Echo with LVEF 50% 2. Hypertensive urgency; now controlled 3. Hyperlipidemia: statin. [id number] 4. CKD 5. Hx of CVA 6. Morbid obesity: BMI 53.9 7. Diabetes, II 8. Anxiety/fibromyalgia 9. PUI; COVID negative Recommendations ASA, statin, BB therapy. Continue current antiHTN therapy Oral Lasix therapy. 2-day MPI underway to r/o ischemia. Okay to discharge from a CV standpoint if no significant ischemia is noted. Supportive care Justicifation of Admission Dx: Justifications for Admission: Justification of Admission Dx: Yes CLINTON SANTIAGO MD 09/19/204: CARDIO Progress Notes Assessment Assessment Patient seen and examined. Agree with MANAGEMENT INTERN's assessment and plan. Chest pain with atypical features. Myocardial infarction has been ruled out. BP better controlled 2D echo showed LVEF 50% MPI did not show any significant ischemia OK for DC from cardiac standpoint GAIL HAMMOND APRN Sep 19, 2020 10:16 CLINTON SANTIAGO MD Sep 19, 2020 22:14
--- NOTE | 2020-09-19 10:56 | NUR ---
SS following up with discharge planning. SS reviewed pt chart and discussed with pt RN. Pt is currently on room air. Pt having second part of stress test today. Discharge plan is to home when medically ready. Possible discharge to home today if cardiology signs off. SS will continue to follow for discharge planning.
[2020-09-19 11:00] VITALS: BP 116/67
--- NOTE | 2020-09-19 13:30 | RAD ---
MR#: [id number] Date of Study: 09/19/2020 Ordering Physician: AMADOU TOLLIVER, Referring Physician: FAMILIA HORVATH Tech: LEAH Adams, ARRT (R) (N) APPROVED REPORT Test Type: Pharmacological Stress Nurse/Tech: Autumn Cowart R.N. Test Indications: C/P , dyspnea Cardiac History: obese,htn,dm Medications: See Electronic Medical Record Medical History: See Electronic Medical Record Resting ECG: SR w/ multiple pac's Resting Heart Rate: 91 bpm Resting Blood Pressure: 132/86mmHg Pretest Chest Pain: No chest pain Nurse/Tech Notes S1S2, lungs CTA, deminished in the bases Consent: The procedure was explained to the patient in lay terms. Informed consent was witnessed. Dilshad eout was entered into [employer]. History and Stress Test performed by RT Jabier (Kory) (N) Pharm. Details Pharmacologic stress testing was performed using 0.4mg per 5ml of regadenoson given intravenously ove r 7-10 seconds. Stress Symptoms No chest pain or symptoms. POST EXERCISE Reason for Termination: Infusion complete Max HR: 122 bpm Max Blood Pressure: 138/62mmHg Blood Pressure response to exercise: Normal blood pressure response during stress. Heart Rate response to exercise: wnl Chest Pain: No. Arrhythmia: No. no changes from abnormal baseline ST Change: No. INTERPRETATION Stress EKG Conclusion: The resting EKG shows a sinus rhythm, LAFB, PACs and nonspecific ST-T wave amanda nges. The stress EKG shows no significant changes from baseline. No EKG evidence of stress-induced ischemia. Imaging Protocol IMAGE PROTOCOL: Rest Tc-99m/stress Tc-99m 2 days Rest: Stress: Viability: Radiopharm.Tc99m RidfcsyvtRx80t Sestamibi Wozv37uTy 31.2mCi Img Date 09/18/2020 09/19/2020 Inj-Img [id number]. 60min. Rest Admin Site:IV - Left AntecubitalAdministrator:RT Jabier (R)(N) Stress Admin Site: IV - Left AntecubitalAdministrator: Leah Mercer, RT (R)(N) STRESS DATA End Diast. Vol.129.0mlAv. Heart Rate81.0bpm End Syst. Vol.37.0mlCO Index BSA0.0L/min Myocardial Ddvp176.0gEject. Eiiqojxt39.0% Stress Rates Pk. Fill Rate3.12EDV/secLVtime Pk. Fill 158.61msec Pk. Empty Rate3.61ESV/secLVtime Pk. Ztxtm054.20msec 08/26 Pk. Fill1.61EDV/sec Stress Scores Regional WT0.00Summed WT3.00 Regional WM0.00Summed WM0.00 LV Perfusion The stress images showed no significant defects. The rest images showed no significant defects. Nuclear imaging shows no reversible ischemia or infarct. Wall Motion Left ventricular systolic function is normal with no regional wall motion abnormalities and an ejecti on fraction of greater than 70%. LV Perf. Quant 17 Seg. SSS9.00 17 Seg. SRS9.00 17 Seg. SDS2.00 Stress Defect Extent (% LAD)5.60Rest Defect Extent (% LAD)10.00Rev. Defect Extent (% LAD)0.00 Stress Defect Extent (% LCX) 7.50Rest Defect Extent (% LCX)17.50Rev. Defect Extent (% LCX)0.00 Stress Defect Extent (% RCA)10.00Rest Defect Extent (% RCA)6.70Rev. Defect Extent (% RCA)0.00 Stress Defect Extent (% DANITA)12.20Rest Defect Extent (% DANITA)12.60Rev. Defect Extent (% DANITA)0.00 Conclusion 1. Abnormal baseline EKG but no EKG evidence of stress-induced ischemia. 2. Nuclear imaging shows no reversible ischemia or infarct. 3. Normal left ventricular systolic function with no regional wall motion abnormalities and an ejecti on fraction of greater than 70%. 4. Low risk Lexiscan nuclear stress test. Signed by : Lam Robbins MD Electronically Approved : 09/19/2020 13:30:11
--- NOTE | 2020-09-19 14:50 | NUR ---
PATIENT DISCHARGED HOME. DISCHARGE INSTRUCTIONS GIVEN. PIV AND HEART MONITOR REMOVED. ESCORTED PATIENT OFF UNIT PER WHEELCHAIR INTO A PRIVATE VEHICLE.
[2020-10-15] MEDS ORDERED: POTA20PA30 PO (09:45)
[2020-10-15] MEDS ORDERED: LISI10TA16 PO (09:45)
== END 2020-09-19 14:50 | disposition home or self-care (01) | DRG 313 ==
LOC: ER 05:52 → 2 SOUTH 07:54
PROVIDERS: ADMIT Internal Medicine; ATTEND Internal Medicine
DX: R07.89 Other chest pain (principal); Z68.43 Body mass index [BMI] 50.0-59.9, adult; I69.354 Hemiplegia and hemiparesis following cerebral infarction affecting left non-dominant side; E11.22 Type 2 diabetes mellitus with diabetic chronic kidney disease; E11.40 Type 2 diabetes mellitus with diabetic neuropathy, unspecified; E66.01 Morbid (severe) obesity due to excess calories; E78.5 Hyperlipidemia, unspecified; F32.9 Major depressive disorder, single episode, unspecified; F41.9 Anxiety disorder, unspecified; G47.33 Obstructive sleep apnea (adult) (pediatric); G89.29 Other chronic pain; I12.9 Hypertensive chronic kidney disease with stage 1 through stage 4 chronic kidney disease, or unspecified chronic kidney disease; I16.0 Hypertensive urgency; J45.909 Unspecified asthma, uncomplicated; K21.9 Gastro-esophageal reflux disease without esophagitis; M54.16 Radiculopathy, lumbar region; M79.7 Fibromyalgia; N18.9 Chronic kidney disease, unspecified; K57.90 Diverticulosis of intestine, part unspecified, without perforation or abscess without bleeding; M19.90 Unspecified osteoarthritis, unspecified site; M48.061 Spinal stenosis, lumbar region without neurogenic claudication; Z20.822 Contact with and (suspected) exposure to COVID-19; Z82.49 Family history of ischemic heart disease and other diseases of the circulatory system; Z87.19 Personal history of other diseases of the digestive system; Z90.710 Acquired absence of both cervix and uterus; Z87.440 Personal history of urinary (tract) infections; Z88.0 Allergy status to penicillin; Z91.041 Radiographic dye allergy status; Z86.718 Personal history of other venous thrombosis and embolism
CPT/HCPCS: 36415; 71045; 78452; 80048; 80053; 80061; 81001; 82962; 83690; 83735; 83880; 84484; 85025; 93005; 93017; 93306; 94640; 94760; 96374; 96375; 99285; A9500; J1650; J2270; J2785; U0003; G0378; J7613; J7626

== ENCOUNTER → 2020-10-15 | Outpatient (CLI) | payer MEDICARE, BC ==
[2020-09-19 11:00] VITALS: BP 116/67
[~2020-10-15] MED LIST changes: +ATOR40TA59 PO; +LISI10TA16 PO; +METO25TA4 PO; +POTA20PA30 PO; +methylPREDNISolone ACETATE 40 MG/ML VIAL. ONE; +methylPREDNISolone ACETATE 80 MG/ML VIAL. ONE
--- NOTE | 2020-10-15 13:02 | PDOC1 ---
INITIAL PAIN CONSULT DATE OF SERVICE: DOS: DATE: 10/15/20 TIME: 12:56 CHIEF COMPLAINT: Chief Complaint: Low back and right greater than left lower extremity pain HISTORY OF PRESENT ILLNESS: 80-year-old female presents history of pain low back bilateral lower extremities right greater than left for many years worse over the past 1 to 2 years as she had several falls at home over the years as well but nothing recently within the last 6 months. Patient reports pain is increasing in her low back however radiates the bilateral lower extremities more on the right than the left once again with pain in the posterior gluteus posterior lateral thighs posterior calves and into the feet especially the foot and the big toe on the right side. Patient reports its constant sharp stabbing throbbing describes the pain leg is shooting and radiating with tingling and numbness in the leg as well aching and cold in the low back and a burning sensation in the leg with extended walking and standing patient reports is better with sitting or laying down but does awaken her from sleep least 3-4 times a night can affect her bowel bladder control but no loss of continence just increased frequency. Patient reports he definitely did affect her walking and she is using a cane or walker and has a cane with her today. Patient reports significant pain with standing still such as standing at her counter or making a meal washing dishes etc.. 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 Patient had MRI scan dated August 2018 showing L5-S1 significant foraminal compromise with contact of the exiting L5 nerve roots increasing on the right in the interval from previous exam fairly advanced generative disc disease at L4-5 and L5-S1. PAST MEDICAL HISTORY: PMH: Hypertension, hearing loss, sleep apnea, arthritis PREVIOUS SURGERIES: Past Surgical Hx: Cataract extraction, hysterectomy, breast biopsy, vocal cord nodule excision CURRENT MEDICATIONS: Current Meds: Active Scripts Medications Dose Route/Sig Max Daily Dose Days Date Category Dose Instructions Lisinopril 10 Mg Tablet 1 Tab PO DAILY 10/15/20 Reported Klor-Con (Potassium Chloride) 20 Meq Packet 40 Meq PO DAILY 10/15/20 Reported Pantoprazole Sodium (Pantoprazole Sodium) 40 Mg Tablet.dr 40 Mg PO DAILYAC 30 09/18/20 Rx Gabapentin (Gabapentin) 300 Mg Capsule 300 Mg PO TID 30 09/06/18 Rx Voltaren (Diclofenac Sodium) 100 Gm Gel..gram. 400 Gm TP TID 05/01/17 Rx 4gm to bilateral knees tid Proair Hfa Inhaler (Albuterol Sulfate) 8.5 Gm Hfa.aer.ad 8.5 Gm IH QID 12/20/13 Reported Hydrocodone-Apap 10-325 (Hydrocodone Bit/Acetaminophen) 1 Each Tablet 1 Each PO PRN TID PRN 12/20/13 Reported Furosemide 40 Mg Tablet 40 Mg PO DAILY 12/20/13 Reported Alprazolam 0.5 Mg Tab.rapdis 0.5 Mg PO TID PRN PRN 12/20/13 Reported ALLERGIES; Allergies: Coded Allergies: Iodinated Contrast Media (Verified Allergy, Intermediate, 10/08/15) Penicillins (Verified Allergy, Intermediate, 10/08/15) FAMILY HISTORY: Family Hx: Diabetes and cancers SOCIAL HISTORY: Social Hx: Patient is under alcohol does not smoke or use any illegal illicit recreational drugs is lives locally in [facility] and is currently retired. REVIEW OF SYSTEMS: ROS: Positive for those items mentioned in history of present illness, all systems are reviewed, otherwise negative ,and are complete full and well-documented on patient's chart. PHYSICAL EXAM: VS: Blood pressure is 149/85 pulse 72 respirations 18 temperature is 98.2 F height is 5 feet 3 his weight is 306 pounds PE: PHYSICAL EXAMINATION: GENERAL: The patient is awake, alert, oriented, appropriate, very pleasant demeanor HEENT: Shows normocephalic, atraumatic. Extraocular movements are intact and symmetrical. Oral cavity: Mucous membranes moist and pink. Dentition is intact. NECK: Shows anterior throat supple without palpable lymphadenopathy noted. Swallow reflex symmetrical. CHEST: Shows normal on inspection. Breath sounds are clear bilaterally, no rales rhonchi wheezes auscultated. HEART: Shows S1, S2 clear. No murmurs auscultated. ABDOMEN: Soft, nontender, nondistended, obese. No palpable organomegaly is noted. No rebound or guarding demonstrated. BACK: Shows spine grossly in the midline. Normal-appearing cervical lordotic curvature. There is slightly increased thoracic kyphosis, some minor flattening of the lumbar lordotic curvature. Lumbar paraspinous muscles show symmetrical on inspection, on palpation shows some moderate tenderness diffusely throughout the upper, middle and lower distribution of the paraspinous muscles bilaterally and also into the lower thoracic paraspinous musculature, firm and tender, but without specific trigger points, without radiation of pain. The patient has good rotational motion of the lumbar spine, both laterally as well as extension and flexion without significant difficulty. No tenderness over the spinous processes, sacrum or sacroiliac regions. EXTREMITIES: Lower extremities show deep tendon reflexes 1+ in the patellar and tendo calcaneus tendons. Motor exam is 4 on a scale of 5 with right dorsiflexio n, extension, quadriceps and hamstring flexion and 5/5 on the left. Peripheral pulses are 1+ posterior tibial. No peripheral edema is noted bilaterally. Lower extremities are warm and dry to touch, equal in color and appearance. Straight leg raise noted to be positive on the right about 40 degrees, left side is negative. Gaenslen's and Lamin's maneuvers are [] as well. The patient is able to stand, stand on her toes without significant difficulty with putting all of her weight on her right lower extremity is using a cane with a significant favoring gait favoring the right lower extremity with ambulation. SKIN: Shows warm and dry, good turgor. No edema. No sores, rashes or bruising throughout. IMPRESSION: Impression: 80-year-old female with long history low back and bilateral lower extremity pain right greater than left in a radicular fashion. MRI scan lumbar spine as noted Hypertension Arthritis Obesity Sleep apnea Plan: Options were discussed with the patient including conservative medical management is continued physical therapies and interventional techniques. Patient would like to pursue interventional techniques. We discussed a lumbar epidural steroid injection using description as well as anatomical models to describe the procedure. Risks were discussed including but not limited to: Bleeding, infection, possibility of epidural hematoma and subsequent neurological compromise, dural puncture, headaches, spinal cord and/or nerve damage, side effects of steroid medication, and poor results regarding pain control. Patient understands and wished to proceed. Patient will return to the clinic in approximate 2 weeks for follow-up, was counseled as to return appointment activity level and side effects to be aware of. Procedure is lumbar epidural steroid injection under local anesthetic using sterile prep and drape at the L5-S1 level using C-arm fluoroscopic guidance in both AP and lateral views medications injected is 120 mg Depo-Medrol + 10 mL preservative-free normal saline and 2 mL contrast- condition at discharge is stable patient tolerated procedure well had no complications. ANGY BAUTISTA MD Oct 15, 2020 13:02
== END | disposition home or self-care (01) ==
LOC: PNCL 08:57
PROVIDERS: ATTEND Anesthesiology
DX: M54.5 Low back pain (principal); M79.605 Pain in left leg; I10 Essential (primary) hypertension; G47.30 Sleep apnea, unspecified; M19.90 Unspecified osteoarthritis, unspecified site; E66.9 Obesity, unspecified; E78.00 Pure hypercholesterolemia, unspecified; J45.909 Unspecified asthma, uncomplicated; I12.9 Hypertensive chronic kidney disease with stage 1 through stage 4 chronic kidney disease, or unspecified chronic kidney disease; E11.22 Type 2 diabetes mellitus with diabetic chronic kidney disease; N18.2 Chronic kidney disease, stage 2 (mild); K21.9 Gastro-esophageal reflux disease without esophagitis; F41.9 Anxiety disorder, unspecified; F32.9 Major depressive disorder, single episode, unspecified; Z87.440 Personal history of urinary (tract) infections; Z90.710 Acquired absence of both cervix and uterus; Z98.890 Other specified postprocedural states; Z79.899 Other long term (current) drug therapy; Z91.041 Radiographic dye allergy status; Z88.0 Allergy status to penicillin; Z83.3 Family history of diabetes mellitus
CPT/HCPCS: 62323; J1030; J1040

== ENCOUNTER → 2020-10-29 | Outpatient (CLI) | payer MEDICARE, BC ==
[~2020-10-29] MED LIST changes: +IOHEXOL 180 MG/ML 10 ML VIAL. ONE
--- NOTE | 2020-10-29 09:40 | PDOC ---
Progress Note - Pain Clinic Date of Service: DOS: DATE: 10/29/20 TIME: 09:38 Diagnosis: Dx: Lumbar radiculopathy with lumbar degenerative disc disease History or Present Illness: HPI: 80-year-old female returns follow-up status post lumbar epidural steroid injection x1. Patient reports about 55% improvement in the low back and the right lower extremity. Patient reports still some significant pain but she was increase her distance walking doing household activities greater ease and comfort walking with greater ease and comfort and doing some traveling with greater ease patient reports that the pain is 6 on scale 10 is worse over the past week for an average for its least is a 4 today patient scribes as tingling and burning in the low back and the right lower extremity aching and dull in the back as well as radiating the lower extremity on the right side to the posterior gluteus posterior lateral thigh posterior calf and into the ankle. Patient reports no new motor or sensory deficits no new bowel or bladder incontinence better with sitting or laying down generally is not awakening patient from sleep at night. Physical Exam: VS: Blood pressure is 140/82 pulse 85 respirations 18 temperature 98.2 F height is 5 feet 3 inches weight is 307 pounds PE: PHYSICAL EXAMINATION: GENERAL: The patient is awake, alert, oriented, appropriate, very pleasant de meanor HEENT: Shows normocephalic, atraumatic. Extraocular movements are intact and symmetrical. Oral cavity: Mucous membranes moist and pink. Dentition is intact. NECK: Shows anterior throat supple without palpable lymphadenopathy noted. Swallow reflex symmetrical. CHEST: Shows normal on inspection. Breath sounds are clear bilaterally, no rales rhonchi or wheezes auscultated. HEART: Shows S1, S2 clear. No murmurs auscultated. ABDOMEN: Soft, nontender, nondistended, obese. No palpable organomegaly is noted. BACK: Shows spine grossly in the midline. Normal-appearing cervical lordotic curvature. There is increased thoracic kyphosis, some flattening of the lumbar lordotic curvature. Lumbar paraspinous muscles show symmetrical on inspection, on palpation shows some moderate tenderness diffusely throughout the upper, middle and lower distribution of the paraspinous muscles without specific trigger points, without radiation of pain. The patient has good rotational motion of the lumbar spine, both laterally as well as extension and flexion without significant difficulty. No tenderness over the spinous processes, sacrum or sacroiliac regions. EXTREMITIES: Lower extremities show deep tendon reflexes 1+ in the patellar and tendo calcaneus tendons. Motor exam is 4 on a scale of 5 with right dorsiflexion, extension, quadriceps and hamstring flexion and 5/5 on the left. Peripheral pulses are 1+ posterior tibial. No peripheral edema is noted bilaterally. Lower extremities are warm and dry to touch, equal in color and appearance. SKIN: Shows warm and dry, good turgor. No edema. No sores, rashes or bruising throughout. Procedure: Procedure: Options were discussed with the patient. Patient chart reviews her current medication regimen updated current review of systems updated today as well. We will proceed with a second in the series lumbar epidural steroid traction stable fluoroscopic guidance. Risks were discussed including but not limited to: Bleeding, infection, possibility of epidural hematoma and subsequent neurological compromise, dural puncture, headaches, spinal cord and/or nerve damage, side effects of steroid medication, and poor results regarding pain control. Patient understands and wished to proceed. Patient will return to the clinic in approximate 2 weeks for follow-up, was counseled as to return appointment activity level and side effects to be aware of. Medication Injected: Med Injected: Procedure is lumbar epidural steroid injection under local anesthetic using sterile prep and drape at the L5-S1 level using C-arm fluoroscopic guidance in both AP and lateral views medications injected is 120 mg Depo-Medrol + 10 mL preservative-free normal saline and 2 mL contrast- condition at discharge is stable patient tolerated procedure well had no complications. Condition at Discharge: Condition at Discharge: Condition at discharge stable, patient procedure well and had no complications. ANGY BAUTISTA MD Oct 29, 2020 09:40
--- NOTE | 2020-10-29 10:08 | PDOC4 ---
PROCEDURE Procedure Patient consented for lumbar epidural steroid injection. Risks were discussed including but not limited to: Bleeding, infection, possibility of epidural hematoma and subsequent neurological compromise, dural puncture, headaches, spinal cord and/or nerve damage, side effects of steroid medication, and poor results regarding pain control. Patient understands and wished to proceed. Procedure is lumbar epidural steroid injection under local anesthetic using sterile prep and drape at the L5-S1 level using C-arm fluoroscopic guidance in both AP and lateral views medications injected is 120 mg Depo-Medrol + 10 mL preservative-free normal saline and 2 mL contrast- condition at discharge is stable patient tolerated procedure well had no complications. ANGY BAUTISTA MD Oct 29, 2020 10:08
== END | disposition home or self-care (01) ==
LOC: PNCL 09:02
PROVIDERS: ATTEND Anesthesiology
DX: M51.16 Intervertebral disc disorders with radiculopathy, lumbar region (principal); E78.00 Pure hypercholesterolemia, unspecified; K21.9 Gastro-esophageal reflux disease without esophagitis; J45.909 Unspecified asthma, uncomplicated; I12.9 Hypertensive chronic kidney disease with stage 1 through stage 4 chronic kidney disease, or unspecified chronic kidney disease; N18.2 Chronic kidney disease, stage 2 (mild); E11.22 Type 2 diabetes mellitus with diabetic chronic kidney disease; M19.90 Unspecified osteoarthritis, unspecified site; F41.9 Anxiety disorder, unspecified; F32.9 Major depressive disorder, single episode, unspecified; Z90.710 Acquired absence of both cervix and uterus; Z98.51 Tubal ligation status; Z98.890 Other specified postprocedural states; Z79.899 Other long term (current) drug therapy; Z88.0 Allergy status to penicillin; Z91.041 Radiographic dye allergy status; Z88.8 Allergy status to other drugs, medicaments and biological substances
CPT/HCPCS: 62323; J1030; J1040; Q9965

== ENCOUNTER → 2020-12-19 | Outpatient (CLI) | payer MEDICARE, BC ==
--- NOTE | 2020-12-19 10:38 | PDOC4 ---
PROCEDURE Procedure Patient was consented for lumbar epidural steroid injection. Risks were dis cussed including but not limited to: Bleeding, infection, possibility of epidural hematoma and subsequent neurological compromise, dural puncture, headaches, spinal cord and/or nerve damage, side effects of steroid medication, and poor results regarding pain control. Patient understands and wished to proceed. Procedure is lumbar epidural steroid injection under local anesthetic using sterile prep and drape at the L5-S1 level using C-arm fluoroscopic guidance in both AP and lateral views medications injected is 120 mg Depo-Medrol + 10 mL preservative-free normal saline and 2 mL contrast- condition at discharge is stable patient tolerated procedure well had no complications. ANGY BAUTISTA MD Dec 19, 2020 10:38
--- NOTE | 2020-12-19 10:38 | PDOC ---
Progress Note - Pain Clinic Date of Service: DOS: DATE: 12/19/20 TIME: 10:35 Diagnosis: Dx: Lumbar radiculopathy with lumbar degenerative disc disease Right knee joint pain with osteoarthritis Left shoulder joint pain with osteoarthritis History or Present Illness: HPI: 80-year-old female returns for follow-up status post lumbar epidural steroid injections x2. Patient reports about 50% improvement overall for the first 4 weeks was doing much better than that but now is declined to about 50% improvement with pain rating the low back right lower extremity posterior gluteus posterior thigh posterior calf patient reports also some in the lateral calf patient reports is worse with walking standing and reports that she "tweaked" her knee about 3 weeks ago which is caused the pain to be worse. Patient reports the pain in the back and legs aching sharp dull tight shooting in the back cramping and stabbing also in the back tingling and radiating the lower right lower extremity radiating can be constant severe and unbearable. Patient reports it wakes her from sleep about every 3-4 hours reports no new motor or sensory deficits no bowel or bladder incontinence. Physical Exam: VS: Blood pressure is 137/87 pulse 80 respirations 16 temperature 98.0 F weight is 313 pounds PE: PHYSICAL EXAMINATION: GENERAL: The patient is awake, alert, oriented, appropriate, very pleasant demeanor HEENT: Shows normocephalic, atraumatic. Extraocular movements are intact and symmetrical. Oral cavity: Mucous membranes moist and pink. Upper dentures NECK: Shows anterior throat supple without palpable lymphadenopathy noted. S wallow reflex symmetrical. CHEST: Shows normal on inspection. Breath sounds are clear bilaterally, distant but no rales or rhonchi. HEART: Shows S1, S2 clear. No murmurs auscultated. ABDOMEN: Soft, nontender, nondistended, obese. No palpable organomegaly is noted. No rebound or guarding demonstrated. BACK: Shows spine grossly in the midline. Normal-appearing cervical lordotic curvature. There is slightly increased thoracic kyphosis, some minor flattening of the lumbar lordotic curvature. Lumbar paraspinous muscles show symmetrical on inspection, on palpation shows some moderate tenderness diffusely throughout the upper, middle and lower distribution of the paraspinous muscles, but without specific trigger points, without radiation of pain. The patient has good rotational motion of the lumbar spine, both laterally as well as extension and flexion without significant difficulty. EXTREMITIES: Lower extremities show deep tendon reflexes 1+ in the patellar and tendo calcaneus tendons. Motor exam is 4 on a scale of 5 with right dorsiflexion, extension, quadriceps and hamstring flexion and 5/5 on the left. Peripheral pulses are 1+ posterior tibial. [] peripheral edema is noted bilaterally. Lower extremities are warm and dry to touch, equal in color and appearance. SKIN: Shows warm and dry, good turgor. No edema. No sores, rashes or bruising throughout. Procedure: Procedure: Options were discussed with the patient. Patient's old chart was reviewed as her current medication regimen updated current review of systems updated today as well. We will proceed with a third in the series lumbar epidural steroid injection with fluoroscopic guidance. Risks were discussed including but not limited to: Bleeding, infection, possibility of epidural hematoma and subsequent neurological compromise, dural puncture, headaches, spinal cord and/or nerve damage, side effects of steroid medication, and poor results regarding pain control. Patient understands and wished to proceed. Patient will return to clinic in approximate 2 weeks for follow-up, was counseled as return appointment activity level and side effects beware. Medication Injected: Med Injected: Procedure is lumbar epidural steroid injection under local anesthetic using sterile prep and drape at the L5-S1 level using C-arm fluoroscopic guidance in both AP and lateral views medications injected is 120 mg Depo-Medrol + 10 mL preservative-free normal saline and 2 mL contrast- condition at discharge is stable patient tolerated procedure well had no complications. Condition at Discharge: Condition at Discharge: Condition at discharge stable, patient already procedure well and had no complications. ANGY BAUTISTA MD Dec 19, 2020 10:38
== END | disposition home or self-care (01) ==
LOC: PNCL 10:34
PROVIDERS: ATTEND Anesthesiology
DX: M51.16 Intervertebral disc disorders with radiculopathy, lumbar region (principal); M17.11 Unilateral primary osteoarthritis, right knee; M19.012 Primary osteoarthritis, left shoulder; E78.00 Pure hypercholesterolemia, unspecified; J45.909 Unspecified asthma, uncomplicated; K21.9 Gastro-esophageal reflux disease without esophagitis; E66.9 Obesity, unspecified; I12.9 Hypertensive chronic kidney disease with stage 1 through stage 4 chronic kidney disease, or unspecified chronic kidney disease; E11.22 Type 2 diabetes mellitus with diabetic chronic kidney disease; N18.2 Chronic kidney disease, stage 2 (mild); F41.9 Anxiety disorder, unspecified; F32.9 Major depressive disorder, single episode, unspecified; Z87.440 Personal history of urinary (tract) infections; Z90.710 Acquired absence of both cervix and uterus; Z98.51 Tubal ligation status; Z98.890 Other specified postprocedural states; Z79.899 Other long term (current) drug therapy; Z88.0 Allergy status to penicillin; Z91.041 Radiographic dye allergy status
CPT/HCPCS: 62323; J1030; J1040; Q9965

== ENCOUNTER → 2021-01-02 | Outpatient (CLI) | payer MEDICARE, BC ==
[~2021-01-02] MED LIST changes: +BUPIVACAINE MPF 0.25% 10 ML VIAL. ONE; -methylPREDNISolone ACETATE 40 MG/ML VIAL. ONE
--- NOTE | 2021-01-02 10:31 | PDOC ---
Progress Note - Pain Clinic Date of Service: DOS: DATE: 01/02/21 TIME: 10:25 Diagnosis: Dx: Lumbar radiculopathy with lumbar degenerative disc disease Right knee joint pain with osteoarthritis Left shoulder joint pain with osteoarthritis History or Present Illness: HPI: 80-year-old female returns for follow-up status post lumbar epidural steroid injections x3. Patient reports about 50% improvement overall in the low back and lower extremities patient ports her main complaint today however is knee pain on the right we discussed that with her on her last visit which is significant history of osteoarthritis and degenerative change in the right knee as well as her bilateral shoulders patient reports her knee is worse with walking standing put all of her weight on her right leg such as climbing stairs or climbing on steps. Patient reports is a 9 on scale 10 is worst least and average is over the past week is a 9 today patient scribes aching sharp dull tight burning cramping stabbing and severe in the right knee better with sitting worse with walking weightbearing patient reports generally is not awakening from sleep at night occasionally her back will. Patient reports no new motor or sensory deficits no new bowel or bladder incontinence or other complaints. Physical Exam: VS: Blood pressure is 120/86 pulse 55 respirations 16 temperature 98.0 F PE: PHYSICAL EXAMINATION: GENERAL: The patient is awake, alert, oriented, appropriate, very pleasant demeanor HEENT: Shows normocephalic, atraumatic. Extraocular movements are intact and symmetrical. NECK: Shows anterior throat supple without palpable lymphadenopathy noted. Swallow reflex symmetrical. CHEST: Shows normal on inspection. Breath sounds are clear bilaterally, no rale s rhonchi wheezes. HEART: Shows S1, S2 clear. No murmurs auscultated. ABDOMEN: Soft, nontender, nondistended, obese. No palpable organomegaly is noted. No rebound or guarding demonstrated. BACK: Shows spine grossly in the midline. Normal-appearing cervical lordotic curvature. There is slightly increased thoracic kyphosis, some minor flattening of the lumbar lordotic curvature. Lumbar paraspinous muscles show symmetrical on inspection, on palpation shows some moderate tenderness diffusely throughout the upper, middle and lower distribution of the paraspinous muscles but without specific trigger points, without radiation of pain. The patient has good rotational motion of the lumbar spine, both laterally as well as extension and flexion without significant difficulty. EXTREMITIES: Lower extremities show deep tendon reflexes 1+ in the patellar and tendo calcaneus tendons. Motor exam is 4 on a scale of 5 with right dorsiflexion, extension, quadriceps and hamstring flexion and 5/5 on the left. Peripheral pulses are 1+ posterior tibial. No peripheral edema is noted bilaterally. Lower extremities are warm and dry to touch, equal in color and appearance. Patient's right knee shows moderate tenderness with palpation on the lateral aspect of the lateral collateral ligament and mildly on the medial aspect but with full rotation motion both actively and passively without crepitus and without ratcheting. Left knee shows no specific tenderness with palpation throughout and normal range of motion as well. SKIN: Shows warm and dry, good turgor. No edema. No sores, rashes or bruising throughout. Procedure: Procedure: Options discussed with the patient. Patient chart was reviewed as her current medication regimen updated current review of systems updated today as well. We will proceed with a right intra-articular knee joint injection today with fluoroscopic guidance. Risks discussed including but not limited to bleeding infection possibility of intravascular injection sequelae spread local anesthetic numbness side effects steroid medications post fluoroscopy and poor results regarding pain control. Patient understands wished to proceed. Patient will return to clinic in approximately 2 weeks for follow-up, was counseled as return appointment activity level and side effects to be aware of. Medication Injected: Med Injected: Under sterile prep and drape patient in supine position using C-arm fluoroscopic guidance patient's right knee was sterilely prepped and draped in usual fashion. Using C-arm fluoroscopy the medial aspect of the right knee joint was identified and visualized and using 1% lidocaine 25-gauge needle of the area of the skin overlying the medial knee compartment was anesthetized. Using a 22- gauge quickie needle with stylette the joint was entered under direct visualization without difficulty. Stylet was removed at this time 2 cc of contrast was then injected with good spread within the knee joint itself without washout or uptake. At this time solution containing 3 cc of 0.25 bupivacaine and 80mg Depo-Medrol, was then injected. Needle was withdrawn and sterile bandage was applied. Patient tolerated procedure well and had no complications. Condition at Discharge: Condition at Discharge: Condition at discharge stable, patient alert procedure well and had no complications. ANGY BAUTISTA MD January 02, 2021 10:31
== END | disposition home or self-care (01) ==
LOC: PNCL 09:05
PROVIDERS: ATTEND Anesthesiology
DX: M17.11 Unilateral primary osteoarthritis, right knee (principal); M19.012 Primary osteoarthritis, left shoulder; M51.16 Intervertebral disc disorders with radiculopathy, lumbar region; M25.561 Pain in right knee; E78.00 Pure hypercholesterolemia, unspecified; J45.909 Unspecified asthma, uncomplicated; K21.9 Gastro-esophageal reflux disease without esophagitis; E66.9 Obesity, unspecified; I12.9 Hypertensive chronic kidney disease with stage 1 through stage 4 chronic kidney disease, or unspecified chronic kidney disease; E11.22 Type 2 diabetes mellitus with diabetic chronic kidney disease; N18.2 Chronic kidney disease, stage 2 (mild); F41.9 Anxiety disorder, unspecified; F32.9 Major depressive disorder, single episode, unspecified; Z87.440 Personal history of urinary (tract) infections; Z90.710 Acquired absence of both cervix and uterus; Z98.51 Tubal ligation status; Z98.890 Other specified postprocedural states; Z79.899 Other long term (current) drug therapy; Z91.041 Radiographic dye allergy status; Z88.0 Allergy status to penicillin; Z83.3 Family history of diabetes mellitus
CPT/HCPCS: 20610; 77002; J1040; J3490; Q9965

== ENCOUNTER 2021-01-21 14:54 | Observation (INO) | payer MEDICARE, BC ==
[~2021-01-21] VITALS: Ht 160 cm; Wt 162.2 kg
[~2021-01-21 14:54] MED LIST changes: -BUPIVACAINE MPF 0.25% 10 ML VIAL. ONE; -IOHEXOL 180 MG/ML 10 ML VIAL. ONE; -methylPREDNISolone ACETATE 80 MG/ML VIAL. ONE
--- NOTE | 2021-01-21 15:33 | RAD ---
XR CHEST 1V CLINICAL INDICATIONS: Reason: chest pain / Spl. Instructions: / History: COMPARISON: Genu 10/01/2021. Findings: No acute lung infiltrate or pleural effusion or pulmonary edema or lung mass or pneumothora x is seen. The heart size, pulmonary vasculature, mediastinum and both arben are unremarkable. IMPRESSION: No acute radiographic abnormality is seen. Electronically signed by: Freddy Stark MD (01/21/2021 3:31 PM) [id number]
[2021-01-21 15:38] LABS: BASO # 0.1 x10^3/uL (0.0-0.2); BASO % 1 % (0-3); EOS # 0.2 x10^3/uL (0.0-0.7); EOS % 4 % (0-3); HEMATOCRIT 35.6 % (36.0-47.0); HEMOGLOBIN 11.8 g/dL (12.0-15.5); LYMPH # 2.5 x10^3/uL (1.0-4.8); LYMPH % 54 % (24-48); MEAN CORPUSCULAR HEMOGLOBIN 28 pg (25-35); MEAN CORPUSCULAR HGB CONC 33 g/dL (31-37); MEAN CORPUSCULAR VOLUME 85 fL (79-100); MONO # 0.4 x10^3/uL (0.0-1.1); MONO % 8 % (0-9); NEUT # 1.6 x10^3/uL (1.8-7.7); NEUT % 33 % (31-73); PLATELET COUNT 217 x10^3/uL (140-400); RED CELL DISTRIBUTION WIDTH 14.9 % (11.5-14.5); WHITE BLOOD COUNT 4.7 x10^3/uL (4.0-11.0)
[2021-01-21 15:49] LABS: GFR 64.9; POTASSIUM 3.9 mmol/L (3.5-5.1)
[2021-01-21 15:55] LABS: ALBUMIN 3.5 g/dL (3.4-5.0); ALBUMIN/GLOBULIN RATIO 0.9 (1.0-1.7); CALCIUM 9.3 mg/dL (8.5-10.1); MAGNESIUM 1.9 mg/dL (1.8-2.4); TOTAL BILIRUBIN 0.6 mg/dL (0.2-1.0); TOTAL PROTEIN 7.4 g/dL (6.4-8.2)
--- NOTE | 2021-01-21 16:31 | ED.ADGEN ---
Past Medical History Past Medical History: Anxiety, Arthritis, CVA, Fibromyalgia, Hypertension, UTI, Other Additional Past Medical Histor: hypokalemia, SCIATIC NERVE PAIN Past Surgical History: Hysterectomy, Other Additional Past Surgical Histo: breast lumpectomy. Smoking Status: Never Smoker Alcohol Use: None Drug Use: None General Adult EDM: Chief Complaint: CHEST PAIN HPI: HPI: Patient is a 80 year old AA female who presents emergency department with complaints of midsternal chest pain that is intermittent with shortness of breath, nausea, lightheadedness, and diaphoresis for the last 2 days. Patient denies any vomiting, diarrhea, abdominal pain, back pain, numbness, tingling, weakness, extremity swelling, fever, cough, or body aches. Patient reported to nursing staff that she recently lost her son due to COVID-19 and her daughter has been diagnosed with cancer. Patient reports that she has received both immunizations for COVID-19. She describes her chest pain as a tight sensation., She currently rates her discomfort a 5 out of 10 on the pain scale, she denies any alleviating or exacerbating factors. She reports that her shortness of breath gets worse with activity. Review of Systems: Review of Systems: Complete ROS is negative unless otherwise noted in HPI. Allergies: Allergies: Allergies Coded Allergies Type Severity Reaction Last Updated Verified Iodinated Contrast Media Allergy Intermediate 10/08/15 Yes Penicillins Allergy Intermediate 10/08/15 Yes Physical Exam: PE: See Above Constitutional: Well developed, well nourished, no acute distress, non-toxic appearance, obese. [] HENT: Normocephalic, atraumatic, bilateral external ears normal, nose normal. [] Eyes: PERRLA, EOMI, conjunctiva normal, no discharge. [] Neck: Normal range of motion, no stridor. [] Cardiovascular:Heart rate regular rhythm Lungs & Thorax: Respirations even and unlabored, no retractions, no respiratory distress, lungs CTA anteriorly, diminished bilateral bases Abdomen: soft, no tenderness, no palpable mass, Skin: Warm, dry, no erythema, no rash. [] Extremities: No cyanosis, ROM intact, no edema. [] Neurologic: Alert and oriented X 3, normal motor, normal sensory, no focal deficits noted. [] Psychologic: Affect normal, judgement normal, mood normal. [] Current Patient Data: Labs: Laboratory Tests Test 5/31/21 15:30 White Blood Count 4.7 x10^3/uL (4.0-11.0) Red Blood Count 4.20 x10^6/uL (3.50-5.40) Hemoglobin 11.8 g/dL (12.0-15.5) L Hematocrit 35.6 % (36.0-47.0) L Mean Corpuscular Volume 85 fL (79-100) Mean Corpuscular Hemoglobin 28 pg (25-35) Mean Corpuscular Hemoglobin Concent 33 g/dL (31-37) Red Cell Distribution Width 14.9 % (11.5-14.5) H Platelet Count 217 x10^3/uL (140-400) Neutrophils (%) (Auto) 33 % (31-73) Lymphocytes (%) (Auto) 54 % (24-48) H Monocytes (%) (Auto) 8 % (0-9) Eosinophils (%) (Auto) 4 % (0-3) H Basophils (%) (Auto) 1 % (0-3) Neutrophils # (Auto) 1.6 x10^3/uL (1.8-7.7) L Lymphocytes # (Auto) 2.5 x10^3/uL (1.0-4.8) Monocytes # (Auto) 0.4 x10^3/uL (0.0-1.1) Eosinophils # (Auto) 0.2 x10^3/uL (0.0-0.7) Basophils # (Auto) 0.1 x10^3/uL (0.0-0.2) Sodium Level 143 mmol/L (136-145) Potassium Level 3.9 mmol/L (3.5-5.1) Chloride Level 105 mmol/L (98-107) Carbon Dioxide Level 29 mmol/L (21-32) Anion Gap 9 (6-14) Blood Urea Nitrogen 9 mg/dL (7-20) Creatinine 1.0 mg/dL (0.6-1.0) Estimated GFR (Cockcroft-Gault) 64.9 BUN/Creatinine Ratio 9 (6-20) Glucose Level 111 mg/dL (70-99) H Calcium Level 9.3 mg/dL (8.5-10.1) Magnesium Level 1.9 mg/dL (1.8-2.4) Total Bilirubin 0.6 mg/dL (0.2-1.0) Aspartate Amino Transferase (AST) 21 U/L (15-37) Alanine Aminotransferase (ALT) 18 U/L (14-59) Alkaline Phosphatase 99 U/L (46-116) Creatine Kinase 145 U/L (26-192) Creatine Kinase MB (Mass) 1.0 ng/mL (0.0-3.6) Creatine Kinase MB Relative Index 0.7 % (0-4) Troponin I Quantitative < 0.017 ng/mL (0.000-0.055) Total Protein 7.4 g/dL (6.4-8.2) Albumin 3.5 g/dL (3.4-5.0) Albumin/Globulin Ratio 0.9 (1.0-1.7) L Lipase 73 U/L (73-393) Laboratory Tests 01/21/21 15:30 Laboratory Tests 01/21/21 15:30 Vital Signs: Vital Signs Date Time Temp Pulse Resp B/P (MAP) Pulse Ox O2 Delivery O2 Flow Rate FiO2 01/21/21 15:36 98.2 84 22 168/83 (111) 99 Room Air 98.2 EKG: EK-sinus arrhythmia, rate 87, abnormal left axis deviation, left anterior fascicular block, left ventricular hypertrophy, no STEMI, read by Dr. Carmen [] 1838-sinus rhythm with continued abnormal left axis deviation, there is prolonged TX, left anterior fascicular block, and left ventricular hypertrophy. Rate 83, no STEMI, read by Dr. Carmen Heart Score: C/O Chest Pain: Yes HEART Score for Chest Pain: HEART Score for Chest Pain Response (Comments) Value History Slighlty/Non-Suspicious 0 ECG Nonspecific Repolarizatio 1 Age > 65 2 Risk Factors >3 Risk Factors or Hx CAD 2 Troponin < Normal Limit 0 Total 5 Risk Factors: Risk Factors: DM, Current or recent (<one month) smoker, HTN, HLP, family history of CAD, obesity. Risk Scores: Score 0 - 3: 2.5% MACE over next 6 weeks - Discharge Home Score 4 - 6: 20.3% MACE over next 6 weeks - Admit for Clinical Observation Score 7 - 10: 72.7% MACE over next 6 weeks - Early Invasive Strategies Radiology/Procedures: Radiology/Procedures: PROCEDURE: CHEST AP ONLY XR CHEST 1V CLINICAL INDICATIONS: Reason: chest pain / Spl. Instructions: / History: COMPARISON: Genu 10/01/2021. Findings: No acute lung infiltrate or pleural effusion or pulmonary edema or lung mass or pneumothorax is seen. The heart size, pulmonary vasculature, mediastinum and both arben are unremarkable. IMPRESSION: No acute radiographic abnormality is seen. Electronically signed by: Freddy Stark MD (01/21/2021 3:31 PM) [id number] PROCEDURE: CT HEAD WO CONTRAST Exam performed: CT scan of the head without contrast. Date of Service: 01/21/2021. Comparison: None available. Clinical History: Headache. Technique: Helical acquisitions are obtained from the foramen magnum to the vertex without intravenous administration of contrast. Findings: The ventricles are midline without evidence of dilatation. Normal huddleston-white differentiation is maintained. There is no extra axial fluid collection, intraparenchymal hemorrhage or mass lesion. The visualized portions of the orbits, paranasal sinuses and the mastoid air cells appear clear. The calvarium is intact. Impression: 1. No acute intracranial process detected. PQRS Compliance Statement: One or more of the following individualized dose reduction techniques were utilized for this examination: 1. Automated exposure control 2. Adjustment of the mA and/or kV according to patient size 3. Use of iterative reconstruction technique PROCEDURE: VENOUS LOWER EXTREMITY RIGHT Right Leg Venous Doppler Ultrasound, 01/21/2021 10:23 PM Indication: 01/21/2021 Comparison: Right calf pain for 2 months Procedure: Real-time grayscale, color flow color duplex Doppler and spectral analysis are obtained with and without compression in the area of the common femoral vein, superficial femoral vein - femoral vein junction, main femoral vein (superficial femoral vein) and popliteal vein. Veins of the proximal calf are also imaged. Findings: The study somewhat limited due to patient's large body habitus. There is normal duplex flow, color flow and compressibility of all visualized vein segments. No evidence of deep venous thrombus is present. Impression: Negative venous Doppler of right lower extremity [] Course & Med Decision Making: Course & Med Decision Making Pertinent Labs and Imaging studies reviewed. (See chart for details) 165-spoke with Dr. Lopez who is the admitting physician, and care was assumed following discussion of patient. Will admit patient for chest pain observation. Patient's vital signs stable. Patient remains afebrile, appears nontoxic, respirations even and unlabored. Patient will be admitted to the CVC floor. Riley burrows's case and plan of care also discussed with Dr. Carmen [] Everette Disclaimer: Everette Disclaimer: This electronic medical record was generated, in whole or in part, using a voice recognition dictation system. Departure Departure Impression: Primary Impression: Chest pain Disposition: ADMITTED INPATIENT Admitting Physician: Delonte Lopez Condition: STABLE Referrals: AMADOU TOLLIVER MD (PCP) Problem Qualifiers Primary Impression: Chest pain Chest pain type: unspecified Qualified Codes: R07.9 - Chest pain, unspecified LENORE PATINO HOME BUILDER January 21, 2021 16:31
[2021-01-21] MEDS ORDERED: diphenhydrAMINE 50 MG/ML VIAL IVP ONE (16:45)
[2021-01-21] MEDS ORDERED: IV NORMAL SALINE 1000ML BAG 1,000 ML IV ONE (16:45)
[2021-01-21] MEDS ORDERED: DEXAMETHASONE SOD PHOS 20 MG/5 ML VIAL. IV ONE (16:45)
[2021-01-21] MEDS ORDERED: PROCHLORPERAZINE 10 MG/2 ML VIAL. IV ONE (16:45)
--- NOTE | 2021-01-21 17:27 | EKG ---
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
[2021-01-21 17:50] LABS: BILIRUBIN,URINE NEGATIVE (NEG); CLARITY,URINE CLEAR; COLOR,URINE YELLOW; NITRITE,URINE NEGATIVE (NEG); PH,URINE 6.5 (<5.0-8.0); PROTEIN,URINE NEGATIVE (NEG-TRACE); UROBILINOGEN,URINE 0.2 mg/dL (0.2 mg/dL)
[2021-01-21 17:58] LABS: BACTERIA,URINE FEW /HPF (0-FEW); RBC,URINE 0 /HPF (0-2); WBC,URINE 0 /HPF (0-4)
--- NOTE | 2021-01-21 18:09 | RAD ---
Exam performed: CT scan of the head without contrast. Date of Service: 01/21/2021. Comparison: None available. Clinical History: Headache. Technique: Helical acquisitions are obtained from the foramen magnum to the vertex without intravenou s administration of contrast. Findings: The ventricles are midline without evidence of dilatation. Normal huddleston-white differentiation is maint ained. There is no extra axial fluid collection, intraparenchymal hemorrhage or mass lesion. The vi sualized portions of the orbits, paranasal sinuses and the mastoid air cells appear clear. The thais rium is intact. Impression: 1. No acute intracranial process detected. PQRS Compliance Statement: One or more of the following individualized dose reduction techniques were utilized for this examinat ion: 1. Automated exposure control 2. Adjustment of the mA and/or kV according to patient size 3. Use of iterative reconstruction technique Electronically signed by: Suzie Hernandez MD (01/21/2021 6:06 PM) [facility]
[2021-01-21 19:10] VITALS: BP 193/103
[2021-01-21] MEDS ORDERED: ALPRAZolam 0.5 MG TABLET PO PRN (20:00)
[2021-01-21] MEDS: ALBUTEROL SULFATE 2.5 MG/3 ML NEBU. NEB SCH (20:14)
[2021-01-21] MEDS: HYDROcodone/APAP 10/325 1 TAB TABLET PO PRN (20:33)
[2021-01-21] MEDS ORDERED: GABA300C18 PO (20:48)
[2021-01-21] MEDS: DICLOFENAC SODIUM 1% TOPICAL GEL 100GM TUBE. TP SCH (21:00)
[2021-01-21] MEDS ORDERED: GABAPENTIN 300 MG CAPSULE. PO SCH (21:00)
[2021-01-21] MEDS: GABAPENTIN 300 MG CAPSULE. PO SCH (21:01)
[2021-01-21 23:00] VITALS: BP 140/66
--- NOTE | 2021-01-21 23:36 | RAD ---
Right Leg Venous Doppler Ultrasound, 01/21/2021 10:23 PM Indication: 01/21/2021 Comparison: Right calf pain for 2 months Procedure: Real-time grayscale, color flow color duplex Doppler and spectral analysis are obtained w ith and without compression in the area of the common femoral vein, superficial femoral vein - femora l vein junction, main femoral vein (superficial femoral vein) and popliteal vein. Veins of the proxim al calf are also imaged. Findings: The study somewhat limited due to patient's large body habitus. There is normal duplex flow, color fl ow and compressibility of all visualized vein segments. No evidence of deep venous thrombus is presen t. Impression: Negative venous Doppler of right lower extremity Electronically signed by: Suzie Hernandez MD (01/21/2021 11:34 PM) [facility]
[2021-01-22 03:30] VITALS: BP 122/76
[2021-01-22] MEDS: HYDROcodone/APAP 10/325 1 TAB TABLET PO PRN (06:45)
[2021-01-22 07:00] VITALS: BP 160/85
[2021-01-22] MEDS ORDERED: PANTOPRAZOLE 40 MG TABLET.DR. PO SCH (07:30)
[2021-01-22] MEDS: ALBUTEROL SULFATE 2.5 MG/3 ML NEBU. NEB SCH ×2 (07:54→11:47)
[2021-01-22] MEDS ORDERED: POTASSIUM CHLORIDE 20 MEQ TABLET.ER. PO SCH (08:00)
[2021-01-22] MEDS: GABAPENTIN 300 MG CAPSULE. PO SCH (08:16)
[2021-01-22] MEDS: DICLOFENAC SODIUM 1% TOPICAL GEL 100GM TUBE. TP SCH (08:17)
[2021-01-22] MEDS ORDERED: FUROSEMIDE 40 MG TABLET. PO SCH (09:00)
[2021-01-22] MEDS ORDERED: LISINOPRIL 10 MG TABLET PO SCH (09:00)
--- NOTE | 2021-01-22 09:19 | EKG ---
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
[2021-01-22] MEDS ORDERED: LISI20TA18 PO (09:23)
--- NOTE | 2021-01-22 09:24 | DISCH ---
DISCHARGE INSTRUCTIONS Condition on Discharge Condition on Discharge: Stable Activity After Discharge Activity Instructions for Disc: No restrictions Lifting Instructions after Dis: No heavy lifting Weight Bearing Status after Di: No restrictions Diet after Discharge Diet after Discharge: Cardiac (ADA) Diet Texture: Regular Liquid Texture: Thin Liquid Checks after Discharge Checks after discharge: Check blood press - daily, Check blood sugar, ac/hs Contacting the DRAmmon after DC Call your doctor for: Concerns you may have Follow-Up Follow Up With: Dr. Amadou Tolliver in 2 days AMADOU TOLLIVER MD Jan 22, 2021 09:24
--- NOTE | 2021-01-22 09:38 | PDOC ---
Provider Note Date of Service: DATE: 01/22/21 TIME: 09:37 Provider Note H&P dictated #[id number] Justifications for Admission Other Justification AMADOU TOLLIVER MD Jan 22, 2021 09:38
--- NOTE | 2021-01-22 10:37 | HP ---
ADMIT DATE: 01/22/2021 COMBINED HISTORY AND PHYSICAL AND DISCHARGE SUMMARY HISTORY OF PRESENT ILLNESS: This 80 years old female who has a history of anxiety, morbid obesity, sleep apnea, hypertension and chronic low back pain, started having chest pains for the last two days. The patient's blood pressure at home was 180/160 mmHg. Recently, her blood pressure was high and I had advised her to take lisinopril 10 mg twice daily, but she was not doing that. The patient's son had recently from COVID-19 and her daughter was also found to have cancer. She was more anxious. She noticed chest pain with dyspnea and nausea. She was feeling worse. She denied any heartburn, fever, chills, cold, cough, congestion. She has chronic low back pain radiating to the right lower extremity, but recently she has had three epidural injections at L5-S1 and symptoms were improving. Because of the recurrent chest pain and uncontrolled hypertension, she came to the emergency room and was admitted for further management. In the emergency room, her blood pressure went up to 200/90 mmHg. She was treated in the emergency room. LABORATORY DATA: WBC count was 4.7, hemoglobin 11.8, glucose 203 and 160. Troponin was less than 0.017, CK was 145. Albumin 3.5. Sodium 143, potassium 3.9, BUN 9, creatinine 1.0, magnesium 1.9, AST 21, ALT 18, alkaline phosphatase 19. Urinalysis negative except for a few bacteria. Chest x-ray, CT scan of head, no acute changes noted. Venous Doppler of the right lower extremity was negative. EKG showed sinus rhythm with abnormal left axis deviation, left anterior fascicular block and left ventricular hypertrophy, rate 83 per minute, no STEMI. Because of the chest pain, the patient was admitted for further evaluation and management. REVIEW OF SYSTEMS: As noted in the history of present illness. The patient is feeling much better this morning and does not have any chest pains. PAST MEDICAL HISTORY: The patient was last admitted here in 08/2020 for chest pain with negative workup for PA, had a negative cardiac workup including a thallium scan in 2019 as well as echocardiogram showing ejection fraction of 77%. 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 PAST SURGICAL HISTORY: Includes cataract removal, right breast lumpectomy, right knee arthroscopy, right rotator cuff repair, three epidural injections between 09/2020 and 12/2020 at L5-S1. FAMILY HISTORY: Positive for coronary artery disease. SOCIAL HISTORY: No history of smoking, alcoholism, or drug abuse. ALLERGIES: THE PATIENT IS ALLERGIC TO IODINATED CONTRAST AND PENICILLIN. MEDICATIONS: Reviewed and reconciled. PHYSICAL EXAMINATION: GENERAL: The patient is an elderly -[place] female who is alert, oriented x 3, morbidly obese and not in acute distress. VITAL SIGNS: This morning, temperature is 97.6, pulse 86 per minute, respirations 16 per minute. Last blood pressure is 122/76. Highest blood pressure was 200/90 and 193/103 mmHg. EYES: Pupils reacting to light. Conjunctivae are pink. Sclerae white. HENT: Unremarkable. NECK: Supple. JVP normal. No thyromegaly. LUNGS: Clear. CARDIOVASCULAR SYSTEM: S1, S2 regular. ABDOMEN: Soft, obese, nontender, no guarding, no rigidity. Bowel sounds present. EXTREMITIES: No edema, no cyanosis, no calf tenderness. SKIN: Warm and dry. NEUROLOGIC: Alert and oriented. Does have some anxiety and depression. No acute changes noted in lab findings as noted earlier. ASSESSMENT: 1. Chest pain, likely due to hypertensive crisis. 2. Hypertensive crisis. 3. Old cerebrovascular accident with right lower extremity weakness. 4. Fibromyalgia. 5. Osteoarthritis with chronic lumbar radiculopathy and low back pain, on hydrocodone. 6. Gastroesophageal reflux disease without esophagitis. 7. Chronic pain. 8. Morbid obesity. 9. Depression. 10. Anxiety. 11. Asthma. 12. Obstructive sleep apnea. PLAN: Consult ____ for cardiology evaluation and management. Cardiac enzymes are normal. Blood pressure control is improving as she is advised to take lisinopril 10 mg 2 tablets daily or 20 mg once a day. Prescription sent to the pharmacy. Symptoms may be exacerbated by her anxiety, which is now resolving. Continue p.r.n. 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 We will discharge her home later today, but she has an appointment to see me in two days and she would like to keep that appointment. This is a combined history and physical and discharge summary. For details, please refer to the orders and transfer papers. WILIAN DR: Leta TID: [id number]
[2021-01-22 11:00] VITALS: BP 153/83
--- NOTE | 2021-01-22 11:12 | PDOC2 ---
MANISH,EMILY ERIKA 01/22/21 1112: CARDIAC CONSULT DATE OF CONSULT Date of Consult DATE: 01/22/21 TIME: 11:11 REASON FOR CONSULT Reason for Consult: Chest pain REFERRING PHYSICIAN Referring Physician: Kirstin Restrepo APRN SOURCE Source: Chart review, Patient HISTORY OF PRESENT ILLNESS HISTORY OF PRESENT ILLNESS This is a 80 yo female who presented secondary to tightness in her central/left chest for the last couple of days. Describes as aching pain. Was slightly dizzy yesterday and blood pressure was significantly elevated, which prompted arrival to the ED. She denies any associated palpitations, shortness of breath, or nausea/vomiting. Reports significant stressors recently. Son recently from COVID and daughter was diagnosed with CA two days ago. Has been very anxious about this, which has caused her blood pressure to elevate. PAST MEDICAL HISTORY Past Medical History Cardiovascular: HTN, Hyperlipidemia Pulmonary: No pertinent hx CENTRAL NERVOUS SYSTEM: CVA GI: GERD, Irritable bowel disease Heme/Onc: Anemia NOS Hepatobiliary: No pertinent hx Psych: Anxiety, Depression Musculoskeletal: Osteoarthritis Rheumatologic: Fibromyalgia Renal/: Chronic renal insuff (3) Endocrine: Diabetes (2) Dermatology: No pertinent hx PAST SURGICAL HISTORY Past Surgical History Breast Biopsy (x2 benign), Hysterectomy, Other (hemorrhoidectomy, nodule vocal cord removed: benign) FAMILY HISTORY Family History: Coronary Artery Disease, Heart Disease SOCIAL HISTORY Social History Smoke: No ALCOHOL: none Drugs: None Lives: with Family CURRENT MEDICATIONS CURRENT MEDICATIONS Current Medications Medications (Trade) Dose Ordered Sig/Marta Route PRN Reason Start Time Stop Time Status Last Admin Dose Admin Sodium Chloride 1,000 ml @ 1,000 mls/hr 1X ONCE IV 01/21/21 16:45 01/21/21 17:44 DC 01/21/21 16:45 Prochlorperazine Edisylate (Compazine) 10 mg 1X ONCE IV 01/21/21 16:45 01/21/21 16:46 DC 01/21/21 16:56 Diphenhydramine HCl (Benadryl) 25 mg 1X ONCE IVP 01/21/21 16:45 01/21/21 16:46 DC 01/21/21 16:53 Dexamethasone Sodium Phosphate (Decadron) 10 mg 1X ONCE IV 01/21/21 16:45 01/21/21 16:46 DC 01/21/21 16:58 Albuterol Sulfate (Ventolin Neb Soln) 2.5 mg QID NEB 01/21/21 21:00 01/22/21 07:54 Diclofenac Sodium (Voltaren) 1 diana TID TP 01/21/21 21:00 01/22/21 08:17 Furosemide (Lasix) 40 mg DAILY PO 01/22/21 09:00 01/22/21 08:16 Acetaminophen/ Hydrocodone Bitart (Lortab 10/325) 1 tab PRN TID PRN PO PAIN 01/21/21 19:30 01/22/21 06:45 Lisinopril (Prinivil) 10 mg DAILY PO 01/22/21 09:00 01/22/21 09:40 DC 01/22/21 08:16 Pantoprazole Sodium (Protonix) 40 mg DAILYAC PO 01/22/21 07:30 01/22/21 08:16 Potassium Chloride (Klor-Con) 40 meq DAILYWBKFT PO 01/22/21 08:00 01/22/21 08:16 Gabapentin (Neurontin) 600 mg TID PO 01/21/21 21:00 01/22/21 08:16 ALLERGIES ALLERGIES: Coded Allergies: Iodinated Contrast Media (Verified Allergy, Intermediate, 10/08/15) Penicillins (Verified Allergy, Intermediate, 10/08/15) ROS Review of System 14 point ROS conducted with pertinent positives noted above in HPI PHYSICAL EXAM PHYSICAL EXAM General: Alert, Oriented X3, Cooperative, No acute distress HEENT: Atraumatic, Mucous membr. moist/pink Lungs: diminished bases Heart: Regular rate (SR no significant ectopies), Normal S1, Normal S2, No murmurs Abdomen: Soft, No tenderness Extremities: No cyanosis, trace bilateral LE edema Skin: No breakdown, No significant lesion Neuro: Normal speech, Sensation intact Psych/Mental Status: Mental status NL, Mood NL MUSCULOSKELETAL: Osteoarthritic changes both hands VITALS/I&O VITALS/I&O: Vital Signs Date Time Temp Pulse Resp B/P (MAP) Pulse Ox O2 Delivery O2 Flow Rate FiO2 01/22/21 11:00 98.5 99 16 153/83 (106) 98 Room Air 98.5 I & O 01/21/21 01/21/21 01/22/21 15:00 23:00 07:00 Intake Total 360 ml 100 ml Output Total 400 ml Balance 360 ml -300 ml LABS Lab: Laboratory Tests Test 01/21/21 15:30 01/21/21 17:40 01/21/21 19:45 01/21/21 20:49 White Blood Count 4.7 x10^3/uL (4.0-11.0) Red Blood Count 4.20 x10^6/uL (3.50-5.40) Hemoglobin 11.8 g/dL (12.0-15.5) L Hematocrit 35.6 % (36.0-47.0) L Mean Corpuscular Volume 85 fL (79-100) Mean Corpuscular Hemoglobin 28 pg (25-35) Mean Corpuscular Hemoglobin Concent 33 g/dL (31-37) Red Cell Distribution Width 14.9 % (11.5-14.5) H Platelet Count 217 x10^3/uL (140-400) Neutrophils (%) (Auto) 33 % (31-73) Lymphocytes (%) (Auto) 54 % (24-48) H Monocytes (%) (Auto) 8 % (0-9) Eosinophils (%) (Auto) 4 % (0-3) H Basophils (%) (Auto) 1 % (0-3) Neutrophils # (Auto) 1.6 x10^3/uL (1.8-7.7) L Lymphocytes # (Auto) 2.5 x10^3/uL (1.0-4.8) Monocytes # (Auto) 0.4 x10^3/uL (0.0-1.1) Eosinophils # (Auto) 0.2 x10^3/uL (0.0-0.7) Basophils # (Auto) 0.1 x10^3/uL (0.0-0.2) Sodium Level 143 mmol/L (136-145) Potassium Level 3.9 mmol/L (3.5-5.1) Chloride Level 105 mmol/L (98-107) Carbon Dioxide Level 29 mmol/L (21-32) Anion Gap 9 (6-14) Blood Urea Nitrogen 9 mg/dL (7-20) Creatinine 1.0 mg/dL (0.6-1.0) Estimated GFR (Cockcroft-Gault) 64.9 BUN/Creatinine Ratio 9 (6-20) Glucose Level 111 mg/dL (70-99) H Calcium Level 9.3 mg/dL (8.5-10.1) Magnesium Level 1.9 mg/dL (1.8-2.4) Total Bilirubin 0.6 mg/dL (0.2-1.0) Aspartate Amino Transferase (AST) 21 U/L (15-37) Alanine Aminotransferase (ALT) 18 U/L (14-59) Alkaline Phosphatase 99 U/L (46-116) Creatine Kinase 145 U/L (26-192) Creatine Kinase MB (Mass) 1.0 ng/mL (0.0-3.6) Creatine Kinase MB Relative Index 0.7 % (0-4) Troponin I Quantitative < 0.017 ng/mL (0.000-0.055) < 0.017 ng/mL (0.000-0.055) Total Protein 7.4 g/dL (6.4-8.2) Albumin 3.5 g/dL (3.4-5.0) Albumin/Globulin Ratio 0.9 (1.0-1.7) L Lipase 73 U/L (73-393) Urine Collection Type Unknown Urine Color Yellow Urine Clarity Clear Urine pH 6.5 (<5.0-8.0) Urine Specific [place] 1.010 (1.000-1.030) Urine Protein Negative mg/dL (NEG-TRACE) Urine Glucose (UA) Negative mg/dL (NEG) Urine Ketones (Stick) Negative mg/dL (NEG) Urine Blood Negative (NEG) Urine Nitrite Negative (NEG) Urine Bilirubin Negative (NEG) Urine Urobilinogen Dipstick 0.2 mg/dL (0.2 mg/dL) Urine Leukocyte Esterase Negative (NEG) Urine RBC 0 /HPF (0-2) Urine WBC 0 /HPF (0-4) Urine Squamous Epithelial Cells Many /LPF Urine Bacteria Few /HPF (0-FEW) Glucose (Fingerstick) 203 mg/dL (70-99) H Test 01/22/21 00:40 01/22/21 06:00 01/22/21 07:44 Troponin I Quantitative < 0.017 ng/mL (0.000-0.055) < 0.017 ng/mL (0.000-0.055) Glucose (Fingerstick) 160 mg/dL (70-99) H Laboratory Tests 01/21/21 15:30 Laboratory Tests 01/21/21 15:30 ECHOCARDIOGRAM ECHOCARDIOGRAM <Conclusion> The left ventricle is normal size. The left ventricular systolic function is low normal. The Ejection Fraction is estimated at 50%. Wall motion consistent with conduction abnormality. Doppler and Color Flow revealed trace aortic regurgitation. There is no significant aortic valvular stenosis. Calculated aortic valve area is 3.21 cm2 with maximum pressure gradient of 9 mmHg and mean pressure gradient of 5 mmHg. Doppler and Color-flow revealed trace to mild mitral regurgitation. Doppler and Color Flow revealed trace tricuspid regurgitation with an estimated PAP of 31 mmHg. DATE: 09/18/20 [id number] 0 STRESS TEST STRESS TEST Conclusion 1. Abnormal baseline EKG but no EKG evidence of stress-induced ischemia. 2. Nuclear imaging shows no reversible ischemia or infarct. 3. Normal left ventricular systolic function with no regional wall motion abnormalities and an ejection fraction of greater than 70%. 4. Low risk Lexiscan nuclear stress test. DATE: 09/19/20 [id number] ASSESSMENT/PLAN ASSESSMENT/PLAN 1. Chest pain, atypical. AMI ruled out. EKG without significant acute changes by comparison. Recent stress testing without evidence of ischemia and echo with preserved LV systolic function 2. Hypertensive urgency; better controlled 3. Hyperlipidemia: statin 4. CKD; Cr stable 5. Hx of CVA 6. Morbid obesity: BMI 63.3 7. Diabetes, II 8. Anxiety/fibromyalgia Recommendations Secondary prevention Home antiHTN therapy resumed. Monitor BP trends and titrate therapy as warranted Oral Lasix therapy. Consider further ischemic evaluation on an outpatient basis if CP recurrent Follow up in our office with Dr. Santiago as scheduled CLINTON SANTIAGO MD 01/22/212111: CARDIAC CONSULT ASSESSMENT/PLAN ASSESSMENT/PLAN Patient seen and examined. Agree with RIVET HOLE PUNCHER's assessment and plan. CP with atypical features and currently resolved. Patient attributes to being under stress VA ruled out Recent echo showed normal LVF and MPI did not show any ischemia BP better controlled since admission No further cardiac workup is indicated at this time Thank you for your consultation GAIL HAMMOND APRN Jan 22, 2021 11:12 CLINTON SANTIAGO MD Jan 22, 2021 21:12
--- NOTE | 2021-01-22 11:32 | NUR ---
SS following for discharge planning. SS reviewed pt chart and discussed with pt RN. Pt is from home and is currently on room air. Cardiology consulted. Discharge order on the chart for home with self care.
--- NOTE | 2021-01-22 13:01 | NUR ---
Discharge Note: ROXY JOSEPH Discharge instructions and discharge home medications reviewed with Patient and a copy given. All questions have been answered and understanding verbalized. The following instructions and handouts were given: lisinopril Patient discharged to home with self care via wheelchair.
[2021-01-22] MEDS ORDERED: GABAPENTIN 300 MG CAPSULE. PO SCH (14:00)
[2021-01-23] MEDS ORDERED: LISINOPRIL 20 MG TABLET PO SCH (09:00)
== END 2021-01-22 13:13 | disposition home or self-care (01) ==
LOC: ER 14:54 → 2 NORTH 16:01
PROVIDERS: ADMIT Internal Medicine; ATTEND Internal Medicine
DX: R07.89 Other chest pain (principal); I16.9 Hypertensive crisis, unspecified; I16.0 Hypertensive urgency; I12.9 Hypertensive chronic kidney disease with stage 1 through stage 4 chronic kidney disease, or unspecified chronic kidney disease; N18.9 Chronic kidney disease, unspecified; M19.90 Unspecified osteoarthritis, unspecified site; M79.7 Fibromyalgia; K21.9 Gastro-esophageal reflux disease without esophagitis; E11.22 Type 2 diabetes mellitus with diabetic chronic kidney disease; E11.40 Type 2 diabetes mellitus with diabetic neuropathy, unspecified; E66.01 Morbid (severe) obesity due to excess calories; E78.5 Hyperlipidemia, unspecified; F32.9 Major depressive disorder, single episode, unspecified; F41.9 Anxiety disorder, unspecified; G47.33 Obstructive sleep apnea (adult) (pediatric); G89.29 Other chronic pain; I69.341 Monoplegia of lower limb following cerebral infarction affecting right dominant side; J45.909 Unspecified asthma, uncomplicated; M54.16 Radiculopathy, lumbar region; Z68.44 Body mass index [BMI] 60.0-69.9, adult; Z79.899 Other long term (current) drug therapy; Z87.19 Personal history of other diseases of the digestive system; Z90.710 Acquired absence of both cervix and uterus
CPT/HCPCS: 36415; 70450; 71045; 80053; 81001; 82553; 82962; 83690; 83735; 84484; 85025; 93005; 93971; 94640; 94760; 96361; 96374; 96375; 99285; G0378; J0780; J1100; J1200; J7030; J7613; G0379

== ENCOUNTER → 2021-03-22 | Outpatient (CLI) | payer MEDICARE, BC ==
[~2021-03-22] MED LIST changes: +BUPIVACAINE MPF 0.25% 10 ML VIAL. ONE; +IOHEXOL 180 MG/ML 10 ML VIAL. ONE; +LISI20TA18 PO; +METR500T PO; +ONDA4TAB7 PO; +methylPREDNISolone ACETATE 80 MG/ML VIAL. ONE
--- NOTE | 2021-03-22 11:12 | PDOC ---
Progress Note - Pain Clinic Date of Service: DOS: DATE: 03/22/21 TIME: 11:06 Diagnosis: Dx: Lumbar radiculopathy with lumbar degenerative disc disease Right knee joint pain with osteoarthritis Left shoulder joint pain with osteoarthritis History or Present Illness: HPI: 80-year-old female returns for follow-up status post lumbar epidural steroid injections and right knee joint injection. Patient reports she did very well with each of these with the back injection about 50% improvement in her back and right lower extremity pain also with the knee injection about 75% improvement for about 2 months patient reports the pain is returning now significantly in the right knee after she had twisted it in November we had seen her in the early part of December she did very well after the injection but the pain is returning now with walking standing specially getting up from a seated position also with pain the low back and right lower extremity radiating the posterior gluteus posterior thigh posterior calf and the right knee on the lateral aspect much more tender patient does have a new x-ray the right knee compared to 2015 x-ray showing tricompartmental degenerative joint changes most advanced in the lateral compartment and had progressed to compared to the 2015 study. Patient rates her pain as a 10 on scale 10 is worse over the past week 9 on average 9 its least is a 9 today patient describes aching sharp dull tight shooting cramping burning stabbing radiating constant severe and unbearable especially when getting up from a seated position putting all her weight on her right knee such as stepping up on a step or curb. Patient reported no new motor or sensory deficits no bowel or bladder incontinence Physical Exam: VS: Blood pressure is 183/73 pulse 59 respirations 18 temperature 97.8 F height is 5 feet 3 inches weight is 318 pounds PE: PHYSICAL EXAMINATION: GENERAL: The patient is awake, alert, oriented, appropriate, very pleasant in demeanor. HEENT: Shows normocephalic, atraumatic. Extraocular movements are intact and symmetrical. Oral cavity: Mucous membranes moist and pink. NECK: Shows anterior throat supple without palpable lymphadenopathy noted. Swallow reflex symmetrical. CHEST: Shows normal on inspection. Breath sounds are clear bilaterally, no rales rhonchi or wheezes auscultated. HEART: Shows S1, S2 clear. No murmurs auscultated. ABDOMEN: Soft, nontender, nondistended, obese. No palpable organomegaly is noted. BACK: Shows spine grossly in the midline. Normal-appearing cervical lordotic curvature. There is slightly increased thoracic kyphosis, some minor flattening of the lumbar lordotic curvature. Lumbar paraspinous muscles show symmetrical on inspection, on palpation shows some moderate tenderness diffusely throughout the upper, middle and lower distribution of the paraspinous muscles without specific trigger points, without radiation of pain. The patient has good rotational motion of the lumbar spine, both laterally as well as extension and flexion without significant difficulty. EXTREMITIES: Lower extremities show deep tendon reflexes 1+ in the patellar and tendo calcaneus tendons. Motor exam is 4 on a scale of 5 with right dorsiflexion, extension, quadriceps and hamstring flexion and 5/5 on the left. Peripheral pulses are 1+ posterior tibial. No peripheral edema is noted bilaterally. Lower extremities are warm and dry. SKIN: Shows warm and dry, good turgor. No edema. No sores, rashes or bruising throughout. Procedure: Procedure: Options were discussed with patient. Patient chart reviews her current medication regimen updated current review of systems updated today as well. We will proceed with a right intra-articular knee joint injection today with fluoroscopic guidance. Risks were discussed including but not limited to bleeding infection possibility of intravascular injection sequelae spread local anesthetic numbness side effects steroid medication exposure fluoroscopy and poor results regarding pain control. Patient understands wished to proceed. She will return to clinic in approximately 3 weeks for follow-up, was counseled as to return appointment activity level and side effects to be aware of. Medication Injected: Med Injected: Under sterile prep and drape patient in supine position using C-arm fluoroscopic guidance patient's right knee was sterilely prepped and draped in usual fashion. Using C-arm fluoroscopy the lateral aspect of the knee joint was identified and visualized and using 1% lidocaine 25-gauge needle of the area of the skin overlying the medial knee compartment was anesthetized. Using a 22-gauge [place] needle with stylette the joint was entered under direct visualization without difficulty. Stylet was removed at this time 1.5 cc of contrast was then injected with good spread within the knee joint itself without washout or uptake. At this time solution containing 3 cc of 0.25 bupivacaine and 80 mg Depo-Medrol, was injected. Needle was withdrawn and sterile bandage applied. Patient tolerated procedure well and had no complications. Condition at Discharge: Condition at Discharge: Condition at discharge stable, patient already the procedure well and had no complications. ANGY BAUTISTA MD Mar 22, 2021 11:12
--- NOTE | 2021-03-22 11:13 | PDOC4 ---
Procedure Note: ICD 10 Code: ICD 10 Code: M2 5.561 M17.11 Procedure Note: She was consented for right intra-articular knee joint injection with fluoroscopic guidance. Risks were discussed including not limited to bleeding infection possibility of intravascular injection sequelae spread local anesthetic numbness side effects steroid medication, exposure to fluoroscopy, and poor results regarding pain control. Patient understands wished to proceed. Under sterile prep and drape patient in supine position using C-arm fluoroscopic guidance patient's right knee was sterilely prepped and draped in usual fashion. Using C-arm fluoroscopy the lateral aspect of the knee joint was identified and visualized and using 1% lidocaine 25-gauge needle of the area of the skin overlying the medial knee compartment was anesthetized. Using a 22-gauge quickie needle with stylette the joint was entered under direct visualization without difficulty. Stylet was removed at this time 1.5 cc of contrast was then injected with good spread within the knee joint itself without washout or uptake. At this time solution containing 3 cc of 0.25 bupivacaine and 80 mg Depo-Medrol, was injected. Needle was withdrawn and sterile bandage applied. Patient tolerated procedure well and had no complications. ANGY BAUTISTA MD Mar 22, 2021 11:13
== END ==
LOC: PNCL 10:26
PROVIDERS: ATTEND Anesthesiology
DX: M25.561 Pain in right knee (principal); M17.11 Unilateral primary osteoarthritis, right knee; I10 Essential (primary) hypertension; E78.00 Pure hypercholesterolemia, unspecified; K21.9 Gastro-esophageal reflux disease without esophagitis; M79.7 Fibromyalgia; M19.90 Unspecified osteoarthritis, unspecified site; F41.9 Anxiety disorder, unspecified; F32.9 Major depressive disorder, single episode, unspecified; Z87.440 Personal history of urinary (tract) infections; Z86.73 Personal history of transient ischemic attack (TIA), and cerebral infarction without residual deficits; Z86.718 Personal history of other venous thrombosis and embolism; Z79.899 Other long term (current) drug therapy; Z90.710 Acquired absence of both cervix and uterus; Z98.51 Tubal ligation status; Z98.49 Cataract extraction status, unspecified eye
CPT/HCPCS: 20610; 77002; J1040; J3490; Q9965

== ENCOUNTER 2021-03-23 05:45 | Emergency (ER) | payer MEDICARE, BC ==
[~2021-03-23] VITALS: Ht 162.6 cm; Wt 122.7 kg
[~2021-03-23 05:45] MED LIST changes: -BUPIVACAINE MPF 0.25% 10 ML VIAL. ONE; -IOHEXOL 180 MG/ML 10 ML VIAL. ONE; -METR500T PO; -ONDA4TAB7 PO; -methylPREDNISolone ACETATE 80 MG/ML VIAL. ONE
[2021-03-23] MEDS ORDERED: IV NORMAL SALINE 1000ML BAG 1,000 ML IV ONE ×2 (06:30→08:45)
[2021-03-23] MEDS ORDERED: ONDANSETRON PF 4 MG/2 ML VIAL. IVP ONE (06:30)
[2021-03-23 06:32] LABS: BASO # 0.1 x10^3/uL (0.0-0.2); BASO % 1 % (0-3); EOS % 0 % (0-3); HEMATOCRIT 35.5 % (36.0-47.0); HEMOGLOBIN 11.6 g/dL (12.0-15.5); LYMPH # 1.1 x10^3/uL (1.0-4.8); LYMPH % 16 % (24-48); MEAN CORPUSCULAR HEMOGLOBIN 28 pg (25-35); MEAN CORPUSCULAR HGB CONC 33 g/dL (31-37); MEAN CORPUSCULAR VOLUME 86 fL (79-100); MONO # 0.3 x10^3/uL (0.0-1.1); MONO % 4 % (0-9); NEUT # 5.5 x10^3/uL (1.8-7.7); NEUT % 79 % (31-73); PLATELET COUNT 217 x10^3/uL (140-400); RED BLOOD COUNT 4.14 x10^6/uL (3.50-5.40); RED CELL DISTRIBUTION WIDTH 14.4 % (11.5-14.5); WHITE BLOOD COUNT 6.9 x10^3/uL (4.0-11.0)
[2021-03-23 06:41] LABS: CALCIUM 9.4 mg/dL (8.5-10.1); GFR 64.9; POTASSIUM 3.7 mmol/L (3.5-5.1)
--- NOTE | 2021-03-23 06:42 | PHYS DOC ---
Past Medical History Past Medical History: Anxiety, Arthritis, CVA, Fibromyalgia, Hypertension, UTI, Other Additional Past Medical Histor: hypokalemia, SCIATIC NERVE PAIN Past Surgical History: Hysterectomy, Tonsillectomy, Tubal ligation, Other Additional Past Surgical Histo: breast lumpectomy, cataract Smoking Status: Never Smoker Alcohol Use: None Drug Use: None General Adult EDM: Chief Complaint: NAUSEA/VOMITING/DIARRHEA HPI: HPI: Patient is a 80 year old female who present to ER for evaluation of nausea vomiting, diarrhea, epigastric abdominal pain since last night. Patient says yesterday she went out to eat at [employer], she ate some soup and some salad. She came home, she started feeling sick in her stomach, having nausea vomiting all night long. Patient also had multiple episodes of diarrhea, not able to sleep. Patient denies any chest pain, no trouble breathing. Patient was vaccina linette for COVID-19. Patient denies any fever. Review of Systems: Review of Systems: Constitutional: Denies fever or chills. [] Eyes: Denies change in visual acuity. [] HENT: Denies nasal congestion or sore throat. [] Respiratory: Denies cough or shortness of breath. [] Cardiovascular: Denies chest pain or edema. [] GI: Positive for abdominal pain with nausea vomiting and diarrhea : Denies dysuria. [] Musculoskeletal: Denies back pain or joint pain. [] Integument: Denies rash. [] Neurologic: Denies headache, focal weakness or sensory changes. [] Endocrine: Denies polyuria or polydipsia. [] Lymphatic: Denies swollen glands. [] Psychiatric: Denies depression or anxiety. [] Heart Score: C/O Chest Pain: N/A Risk Factors: Risk Factors: DM, Current or recent (<one month) smoker, HTN, HLP, family history of CAD, obesity. Risk Scores: Score 0 - 3: 2.5% MACE over next 6 weeks - Discharge Home Score 4 - 6: 20.3% MACE over next 6 weeks - Admit for Clinical Observation Score 7 - 10: 72.7% MACE over next 6 weeks - Early Invasive Strategies Current Medications: Current Medications Medications (Trade) Dose Ordered Sig/Marta Start Time Stop Time Status Last Admin Dose Admin Ondansetron HCl (Zofran) 4 mg 1X ONCE 03/23/21 06:30 7/31/21 06:31 DC 03/23/21 06:33 4 MG Sodium Chloride 1,000 ml @ 1,000 mls/hr 1X ONCE 03/23/21 06:30 03/23/21 07:29 03/23/21 06:33 1,000 MLS/HR Allergies: Allergies: Allergies Coded Allergies Type Severity Reaction Last Updated Verified Iodinated Contrast Media Allergy Intermediate 10/08/15 Yes Penicillins Allergy Intermediate 10/08/15 Yes Physical Exam: PE: Constitutional: Well developed, well nourished, no acute distress, non-toxic appearance. [] HENT: Normocephalic, atraumatic, bilateral external ears normal, oral mucosa very dry, no oral exudates, nose normal. [] Eyes: PERRLA, EOMI, conjunctiva normal, no discharge. [] Neck: Normal range of motion, no tenderness, supple, no stridor. [] Cardiovascular:Heart rate regular rhythm, no murmur [] Lungs & Thorax: Bilateral breath sounds clear to auscultation [] Abdomen: Bowel sounds normal, soft, there is tenderness to palpation in epigastric area, no mass, no pulsatile mass, no masses, no pulsatile masses. [] Skin: Warm, dry, no erythema, no rash. [] Back: No tenderness, no CVA tenderness. [] Extremities: No tenderness, no cyanosis, no clubbing, ROM intact, no edema. [] Neurologic: Alert and oriented X 3, normal motor function, normal sensory function, no focal deficits noted. [] Psychologic: Affect normal, judgement normal, mood normal. [] Current Patient Data: Labs: Laboratory Tests Test 03/23/21 06:15 White Blood Count 6.9 x10^3/uL Red Blood Count 4.14 x10^6/uL Hemoglobin 11.6 g/dL Hematocrit 35.5 % Mean Corpuscular Volume 86 fL Mean Corpuscular Hemoglobin 28 pg Mean Corpuscular Hemoglobin Concent 33 g/dL Red Cell Distribution Width 14.4 % Platelet Count 217 x10^3/uL Neutrophils (%) (Auto) 79 % Lymphocytes (%) (Auto) 16 % Monocytes (%) (Auto) 4 % Eosinophils (%) (Auto) 0 % Basophils (%) (Auto) 1 % Neutrophils # (Auto) 5.5 x10^3/uL Lymphocytes # (Auto) 1.1 x10^3/uL Monocytes # (Auto) 0.3 x10^3/uL Eosinophils # (Auto) 0.0 x10^3/uL Basophils # (Auto) 0.1 x10^3/uL Sodium Level 137 mmol/L Potassium Level 3.7 mmol/L Chloride Level 102 mmol/L Carbon Dioxide Level 25 mmol/L Anion Gap 10 Blood Urea Nitrogen 10 mg/dL Creatinine 1.0 mg/dL Estimated GFR (Cockcroft-Gault) 64.9 BUN/Creatinine Ratio 10 Glucose Level 205 mg/dL Calcium Level 9.4 mg/dL Magnesium Level 2.0 mg/dL Total Bilirubin 0.4 mg/dL Aspartate Amino Transf (AST/SGOT) 14 U/L Alanine Aminotransferase (ALT/SGPT) 19 U/L Alkaline Phosphatase 102 U/L Troponin I Quantitative < 0.017 ng/mL Total Protein 7.0 g/dL Albumin 3.5 g/dL Albumin/Globulin Ratio 1.0 Lipase 47 U/L Current Medications Medications (Trade) Dose Ordered Sig/Marta Route PRN Reason Start Time Stop Time Status Last Admin Dose Admin Sodium Chloride 1,000 ml @ 1,000 mls/hr 1X ONCE IV 03/23/21 06:30 03/23/21 07:29 DC 03/23/21 06:33 Ondansetron HCl (Zofran) 4 mg 1X ONCE IVP 03/23/21 06:30 03/23/21 06:31 DC 03/23/21 06:33 Morphine Sulfate (Morphine Sulfate) 4 mg 1X ONCE IVP 03/23/21 07:30 03/23/21 07:31 DC 03/23/21 07:51 Metoclopramide HCl (Reglan Vial) 10 mg 1X ONCE IVP 03/23/21 08:00 03/23/21 08:03 DC 03/23/21 08:20 Sodium Chloride 1,000 ml @ 1,000 mls/hr 1X ONCE IV 03/23/21 08:45 03/23/21 09:44 03/23/21 09:02 Vital Signs: Vital Signs Date Time Temp Pulse Resp B/P (MAP) Pulse Ox O2 Delivery O2 Flow Rate FiO2 03/23/21 05:45 98.4 96 20 161/80 (106) 95 Room Air 98.4 EKG: EKG: EKG was done at 7:50 PM, heart rate 104 bpm, sinus tachycardia, no ST segment elevation. Radiology/Procedures: Radiology/Procedures: [] [address] [place] [address] IMAGING REPORT Signed PATIENT: SHARON JOSEPHOUNT: [id number] : 1940 LOCATION: ER AGE: 80 SEX: F EXAM STATUS: REG ER ORD. PHYSICIAN: VLADISLAV SEBASTIAN DO REASON: abdominal pain, nausea, vomiting PROCEDURE: CT ABDOMEN PELVIS WO CONTRAST CT STUDY OF THE ABDOMEN AND PELVIS WITHOUT CONTRAST CLINICAL INDICATIONS: Abdominal pain with nausea and vomiting. TECHNIQUE: Noncontrast helical CT scanning of the abdomen and pelvis was performed. Without contrast, the sensitivity to detect organ pathology and GI tract pathology is decreased. PQRS compliance Statement One or more of the following individualized dose reduction techniques were utilized for this study: 1. Automated exposure control 2. Adjustment of the mA and/or kV according to patient size 3. Use of iterative reconstruction technique COMPARISON: October 24, 2012 FINDINGS: The liver and spleen and pancreas are unremarkable on this noncontrast study. Gallbladder is normal and no extrahepatic biliary ductal dilatation is seen. No adrenal mass is evident. No hydronephrosis or hydroureter or urinary tract stone is evident. Urinary bladder wall is smooth. No aneurysmal dilatation of the abdominal aorta is seen. No enlarged abdominal or pelvic lymphadenopathy is seen. Urinary bladder wall is smooth. There is wall thickening of the colon from the distal transverse colon on down into the rectum. There is additional segmental wall thickening of the mid transverse colon. No obstructive bowel pattern is seen. The appendix is normal. The terminal ileum is unremarkable. No free air or free fluid or mesenteric edema is seen. No lung base consolidation is evident. No lytic process is seen. Grade 2 anterolisthesis of L5-S1 is seen secondary to degenerative facet arthropathy. This results in spinal canal stenosis at this level. IMPRESSION: Wall thickening of the colon consistent with colitis. Sigmoid diverticulosis is seen without diverticulitis. Grade 2 anterolisthesis of L5-S1 which results in spinal canal stenosis at this level. Electronically signed by: Freddy Stark MD (03/23/2021 8:19 AM) [id number] DICTATED and SIGNED BY: FREDDY SATRK MD DATE: 03/23/21 [id number] 0 Course & Med Decision Making: Course & Med Decision Making Pertinent Labs and Imaging studies reviewed. (See chart for details) Patient is a 80-year-old female who present to ER due to nausea vomiting and abdominal pain with diarrhea since last night after she ate at [employer]. CT scan her abdomen pelvis show colitis pattern. Patient was given IV fluid, IV nausea medication. Patient feel much better. Patient will be discharged home, she was found to be dehydrated. Patient be given nausea medication and some ant ibiotics to take at home. Patient with need to follow-up with her family physician next week for reevaluation. Patient was amenable to plan of care. Dragon Disclaimer: Dragon Disclaimer: This electronic medical record was generated, in whole or in part, using a voice recognition dictation system. Departure Departure Impression: Primary Impression: Gastroenteritis Additional Impressions: Dehydration Colitis Disposition: HOME / SELF CARE / HOMELESS Condition: IMPROVED Referrals: AMADOU TOLLIVER MD (PCP) Follow up with your doctor on Thursday for reevaluation Patient Instructions: Colitis, Viral Gastroenteritis Additional Instructions: Thank you for visiting our Emergency Department. We appreciate you trusting us with your care. If any additional problems come up don't hesitate to return to visit us. Please follow up with your primary care provider so they can plan additional care if needed and know about the problem that you had. If symptoms worsen come back to the Emergency Department. Any concerning symptoms that start such as chest pain, shortness of air, weakness or numbness on one side of the body, running high fevers or any other concerning symptoms return to the ER. Scripts Metronidazole (FLAGYL) 500 Mg Tablet 500 MG PO TID for 7 Days, #21 TAB Prov: VLADISLAV SEBASTIAN DO 03/23/21 Ondansetron Hcl (ZOFRAN) 4 Mg Tablet 1 TAB PO Q6HRS PRN for NAUSEA, #20 TAB Prov: VLADISLAV SEBASTIAN DO 03/23/21 VLADISLAV SEBASTIAN DO Mar 23, 2021 06:42
[2021-03-23 06:47] LABS: ALBUMIN 3.5 g/dL (3.4-5.0); TOTAL BILIRUBIN 0.4 mg/dL (0.2-1.0)
[2021-03-23] MEDS ORDERED: MORPHINE SULFATE 4 MG/ML INJ. IVP ONE (07:30)
[2021-03-23] MEDS ORDERED: METOCLOPRAMIDE HCL 10 MG/2 ML VIAL. IVP ONE (08:00)
--- NOTE | 2021-03-23 08:22 | RAD ---
CT STUDY OF THE ABDOMEN AND PELVIS WITHOUT CONTRAST CLINICAL INDICATIONS: Abdominal pain with nausea and vomiting. TECHNIQUE: Noncontrast helical CT scanning of the abdomen and pelvis was performed. Without contrast, the sensitivity to detect organ pathology and GI tract pathology is decreased. PQRS compliance Statement One or more of the following individualized dose reduction techniques were utilized for this study: 1. Automated exposure control 2. Adjustment of the mA and/or kV according to patient size 3. Use of iterative reconstruction technique COMPARISON: October 24, 2012 FINDINGS: The liver and spleen and pancreas are unremarkable on this noncontrast study. Gallbladder i s normal and no extrahepatic biliary ductal dilatation is seen. No adrenal mass is evident. No hydron ephrosis or hydroureter or urinary tract stone is evident. Urinary bladder wall is smooth. No aneurys mal dilatation of the abdominal aorta is seen. No enlarged abdominal or pelvic lymphadenopathy is see n. Urinary bladder wall is smooth. There is wall thickening of the colon from the distal transverse c olon on down into the rectum. There is additional segmental wall thickening of the mid transverse col on. No obstructive bowel pattern is seen. The appendix is normal. The terminal ileum is unremarkable. No free air or free fluid or mesenteric edema is seen. No lung base consolidation is evident. No lyt ic process is seen. Grade 2 anterolisthesis of L5-S1 is seen secondary to degenerative facet arthropa thy. This results in spinal canal stenosis at this level. IMPRESSION: Wall thickening of the colon consistent with colitis. Sigmoid diverticulosis is seen with out diverticulitis. Grade 2 anterolisthesis of L5-S1 which results in spinal canal stenosis at this level. Electronically signed by: Freddy Stark MD (03/23/2021 8:19 AM) [id number]
[2021-03-23 09:30] VITALS: BP 153/59
[2021-03-23] MEDS ORDERED: METR500T PO (09:45)
[2021-03-23] MEDS ORDERED: ONDA4TAB7 PO (09:45)
--- NOTE | 2021-03-23 13:58 | EKG ---
[facility] [address] [place] [address] Test Date: 2021-03-23 Test Time: 07:13:55 Pat Name: TUSHAR JOSEPH Department: Room: Gender: F [employer]: : 1940 Requested By: VLADISLAV SEBASTIAN Order Number: [id number] Reading MD: Measurements Intervals [place] Rate: 104 P: OR: QRS: -36 QRSD: 108 T: 80 QT: 354 QTc: 472 Interpretive Statements IRREGULAR RHYTHM, NO P-WAVE FOUND ABNORMAL LEFT AXIS DEVIATION LEFT ANTERIOR FASCICULAR BLOCK LEFT VENTRICULAR HYPERTROPHY T ABNORMALITY IN HIGH LATERAL LEADS ABNORMAL ECG RI6.01 No previous ECG available for comparison
== END 2021-03-23 10:20 | disposition home or self-care (01) ==
LOC: ER 05:45
DX: K52.9 Noninfective gastroenteritis and colitis, unspecified (principal); E86.0 Dehydration; I10 Essential (primary) hypertension; Z86.73 Personal history of transient ischemic attack (TIA), and cerebral infarction without residual deficits; Z90.710 Acquired absence of both cervix and uterus; Z98.51 Tubal ligation status; Z88.0 Allergy status to penicillin; Z91.041 Radiographic dye allergy status
CPT/HCPCS: 36415; 74176; 80053; 83690; 83735; 84484; 85025; 93005; 96361; 96374; 96375; 99285; J2270; J2405; J2765; J7030